=== PATIENT | female | born 1965 | race Caucasian/White ===

== ENCOUNTER 2019-12-27 15:56 | Outpatient (REF) | payer OTHER, SELFPAY ==
--- NOTE | 2019-12-27 | XR_ITS ---
EXAMINATION: XR SINUSES CLINICAL INFORMATION: Sinus headache COMPARISON: None TECHNIQUE: 3 views of the sinuses were obtained. FINDINGS: Paranasal sinuses appear clear without air-fluid levels. No fractures are identified. No radiodense foreign bodies. IMPRESSION: The paranasal sinuses appear clear.
[2019-12-27 16:20] LABS: MANUAL DIFF FLAG NO
[2019-12-27 16:26] LABS: Basophils Percent Auto 0.6 % (0-2); Eosinophils Absolute Auto 0.1 X10*3/uL (0.0-0.4); Eosinophils Percent Auto 1.1 % (0-4); Hematocrit 45.9 % (37-47); Hemoglobin 14.9 g/dl (12.0-16.0); Imm Gran Abs Auto 0.03 X10*3/uL (0.00-0.03); Imm Gran Pct Auto 0.5 % (0.0-0.4); Lymphocytes Absolute Auto 1.3 X10*3/uL (1.2-4.9); Lymphocytes Percent Auto 19.7 % (20-40); Mean Corpuscular HGB Conc 32.5 g/dl (31.0-35.0); Mean Corpuscular Hemoglobin 31.4 pg (27.0-33.0); Mean Corpuscular Volume 96.8 fL (80-98); Mean Platelet Volume 11.6 fL (9.4-12.3); Monocytes Absolute Auto 0.7 X10*3/uL (0.1-1.2); Monocytes Percent Auto 11.6 % (2-11); Neutrophils Absolute Auto 4.2 X10*3/uL (2.0-8.3); Neutrophils Percent Auto 66.5 % (45-73); Platelet Count 214 X10*3/uL (160-400); Red Blood Count 4.74 X10*6/uL (4.20-5.50); Red Cell Distribution Width 13.4 % (11.0-16.0); White Blood Count 6.4 X10*3/uL (4.8-10.8)
[2019-12-27 16:50] LABS: Alanine Aminotransferase 34 U/L (0-31); Albumin Level 4.5 g/dL (3.5-5.0); Alkaline Phosphatase 80 U/L (39-117); Anion Gap 11 (12-20); Aspartate Amino Transferase 24 U/L (5-31); Bilirubin Total 0.3 mg/dL (0.0-1.0); Blood Urea Nitrogen 16 mg/dL (9-16); C Reactive Protein 1.42 mg/dL (< or = 0.50); Calcium 9.6 mg/dL (8.4-10.2); Carbon Dioxide 30 mmol/L (22-29); Chloride 103 mmol/L (96-108); Estimated Glomerular Filt Rate 53; Glucose Random 84 mg/dL (60-115); Potassium 4.4 mmol/l (3.3-5.1); Sodium 140 mmol/L (135-145); Total Protein 7.6 g/dL (6.5-8.0)
[2019-12-27 17:23] LABS: Vitamin B12 > 2000 pg/mL (200-900)
[2019-12-27 17:40] LABS: Appearance Urine CLEAR; Color Urine YELLOW; Glucose Urine UA NEG (NEG); Leukocyte Esterase Urine NEG (NEG); Nitrite Urine NEG (NEG); Specific Gravity - Urine 1.025 (1.005-1.025); Urine Blood NEG (NEG); Urine Ketones NEG (NEG); Urine Protein NEG (NEG-TRACE)
== END 2019-12-27 15:57 | disposition home or self-care (01) ==
LOC: HO.LAB 15:56
PROVIDERS: PCP Internal Medicine; Visit Provider Internal Medicine
DX: R51.9 Headache, unspecified (principal); Q61.5 Medullary cystic kidney; E53.8 Deficiency of other specified B group vitamins
CPT/HCPCS: 36415; 70220; 80053; 81003; 82607; 85025; 86140

== ENCOUNTER 2020-02-21 15:33 | Outpatient (REF) | payer OTHER, SELFPAY ==
--- NOTE | 2020-02-21 | MM_ITS ---
EXAMINATION: MM SCREENING DIGITAL BREAST TOMOSYNTHESIS, BILATERAL CLINICAL INFORMATION: Screening. Asymptomatic. The lifetime risk of breast cancer based on the Tyrer-Cuzick Model is 9%. COMPARISON: Mammography: 02/15/2019, 01/18/2018, 12/19/2016 TECHNIQUE: Digital breast tomosynthesis is performed in both the craniocaudal and mediolateral oblique views along with computer-aided detection (CAD). Synthesized 2D images are generated from the tomosynthesis. FINDINGS: There are scattered areas of fibroglandular density (ACR BI-RADS breast composition Category b). There is no significant mass or architectural abnormality. Parenchymal pattern is similar to prior studies. No developing density. Again, there are regional calcifications central and upper outer right breast and lesser calcifications central left breast. No significant changes from prior exam. MM/MM tomosynthesis screening BI IMPRESSION: No significant changes from prior studies. ASSESSMENT: BI-RADS 2: Benign RECOMMENDATION: Routine annual mammography screening. This patient's information was entered into a reminder system with a target due date for their next mammogram.
== END 2020-02-21 15:34 | disposition home or self-care (01) ==
LOC: HO.MAMMO 15:33
PROVIDERS: PCP Internal Medicine; Visit Provider Internal Medicine
DX: Z12.31 Encounter for screening mammogram for malignant neoplasm of breast (principal)
CPT/HCPCS: 77063; 77067

== ENCOUNTER 2020-03-26 15:35 | Outpatient (REF) | payer BC, SELFPAY ==
[2020-03-29 12:12] LABS: HPV mRNA E6/E7 Not Detected (Not Detected)
== END 2020-03-26 15:36 | disposition home or self-care (01) ==
LOC: HO.LAB 15:35
PROVIDERS: PCP Internal Medicine; Visit Provider Obstetrics & Gynecology
DX: Z01.419 Encounter for gynecological examination (general) (routine) without abnormal findings (principal)
CPT/HCPCS: 36415; 87624; 87625; 88141; 88142

== ENCOUNTER 2021-02-24 15:23 | Outpatient (REF) | payer BC, SELFPAY ==
--- NOTE | ~2021-02-24 | MM_ITS ---
EXAMINATION: MM SCREENING DIGITAL BREAST TOMOSYNTHESIS, BILATERAL CLINICAL INFORMATION: Screening. Asymptomatic. The lifetime risk of breast cancer based on the Tyrer-Cuzick Model is 7%. COMPARISON: Mammography: 02/21/2020, 02/15/2019, 01/18/2018 TECHNIQUE: Digital breast tomosynthesis is performed in both the craniocaudal and mediolateral oblique views along with computer-aided detection (CAD). Synthesized 2D images are generated from the tomosynthesis. FINDINGS: There are scattered areas of fibroglandular density (ACR BI-RADS breast composition Category b). There are no significant masses, abnormal calcifications, or other abnormalities. Parenchymal pattern is similar to prior exams. There are scattered benign calcifications in each breast. No significant changes. MM/MM tomosynthesis screening BI IMPRESSION: No mammographic evidence of malignancy. ASSESSMENT: BI-RADS 2: Benign RECOMMENDATION: Routine annual mammography screening. This patient's information was entered into a reminder system with a target due date for their next mammogram.
== END 2021-02-24 15:24 | disposition home or self-care (01) ==
LOC: HO.MAMMO 15:23
PROVIDERS: Visit Provider Internal Medicine
DX: Z12.31 Encounter for screening mammogram for malignant neoplasm of breast (principal)
CPT/HCPCS: 77063; 77067

== ENCOUNTER → 2021-03-31 13:07 | Outpatient (BNVA) | payer BC, SELFPAY | PROVIDERS: Visit Provider Obstetrics & Gynecology ==

== ENCOUNTER 2021-04-30 12:48 | Outpatient (REF) | payer BC, SELFPAY ==
--- NOTE | ~2021-04-30 | CT_ITS ---
EXAMINATION: CT SINUS WITHOUT CONTRAST CLINICAL INFORMATION: Sinus pressure, rhinitis. COMPARISON: None TECHNIQUE: Axial 2 mm thin and reformatted 2 mm thin sagittal and coronal images of sinuses were obtained. This CT examination was performed using dose optimization techniques as appropriate, variously including the following: *Automated exposure control *Adjustment of mA and/or kV according to patient size (this includes techniques or standardized protocols for targeted exams where dose is matched to indication/reason for exam; i.e. extremities or head) *Use of iterative reconstruction technique DLP: 106 mGy-cm FINDINGS: FRONTAL SINUSES AND DRAINAGE PATHWAYS: Normal. MAXILLARY SINUSES AND DRAINAGE PATHWAYS: There is minimal mucoperiosteal thickening lateral wall left maxillary sinus. Rest of the paranasal sinuses are well aerated. The infundibula are patent. ETHMOID SINUSES: Normal. The ethmoid roofs are symmetric, with olfactory fossa depth of 0.4 on the right and 0.4 on the left. SPHENOID SINUSES AND DRAINAGE PATHWAYS: Normal. The sphenoid ostia are patent. The carotid canals are covered by bone. NASAL CAVITY/NASOPHARYNX: The nasal cavity is clear. There is mild right nasal septal deviation with tiny spurring. The nasopharynx is symmetric. ADDITIONAL RELEVANT FINDINGS: No periapical disease is seen. The TMJs articulate normally. The orbits and skull base soft tissues are unremarkable. The middle ear cavities and mastoid air cells are clear. Limited evaluation demonstrates no acute intracranial findings. CT/CT sinus wo con IMPRESSION: Mild deviation of nasal septum to the right with a small bony spur. Minimal mucoperiosteal thickening left maxillary sinus. Rest of the paranasal sinuses are well aerated.
== END 2021-04-30 12:49 | disposition home or self-care (01) ==
LOC: HO.CT 12:48
PROVIDERS: PCP Internal Medicine; Visit Provider Internal Medicine
DX: J31.0 Chronic rhinitis (principal); R51.9 Headache, unspecified
CPT/HCPCS: 70486

== ENCOUNTER 2021-05-06 06:10 | Outpatient (REF) | payer BC, SELFPAY ==
[2021-05-06 06:23] LABS: MANUAL DIFF FLAG NO
[2021-05-06 07:32] LABS: Basophils Percent Auto 0.5 % (0-2); Eosinophils Absolute Auto 0.2 X10*3/uL (0.0-0.4); Hematocrit 48.1 % (37.0-47.0); Imm Gran Abs Auto 0.01 X10*3/uL (0.00-0.03); Imm Gran Pct Auto 0.1 % (0.0-0.4); Lymphocytes Absolute Auto 2.8 X10*3/uL (1.2-4.9); Mean Corpuscular HGB Conc 31.2 g/dl (31.0-35.0); Mean Corpuscular Hemoglobin 30.8 pg (27.0-33.0); Mean Corpuscular Volume 98.8 fL (80.0-98.0); Mean Platelet Volume 11.6 fL (9.4-12.3); Monocytes Absolute Auto 0.6 X10*3/uL (0.1-1.2); Monocytes Percent Auto 7.1 % (2-11); Neutrophils Absolute Auto 4.1 x10*3/uL (2.0-8.3); Neutrophils Percent Auto 53.3 % (45-73); Platelet Count 253 X10*3/uL (160-400); Red Blood Count 4.87 X10*6/uL (4.20-5.50); Red Cell Distribution Width 13.1 % (11.0-16.0); White Blood Count 7.7 X10*3/uL (4.8-10.8)
[2021-05-06 07:35] LABS: Appearance Urine HAZY; Color Urine YELLOW; Glucose Urine UA NEG (NEG); Leukocyte Esterase Urine NEG (NEG); Nitrite Urine NEG (NEG); Specific Gravity - Urine 1.025 (1.005-1.025); Urine Blood NEG (NEG); Urine Ketones NEG (NEG); Urine Protein NEG (NEG-TRACE)
[2021-05-06 07:48] LABS: Alanine Aminotransferase 25 U/L (0-31); Albumin Level 4.3 g/dL (3.5-5.0); Alkaline Phosphatase 82 U/L (39-117); Anion Gap 14 (12-20); Aspartate Amino Transferase 19 U/L (5-31); Bilirubin Total 0.4 mg/dL (0.0-1.0); Blood Urea Nitrogen 16 mg/dL (9-16); Calcium 9.8 mg/dL (8.4-10.2); Carbon Dioxide 28 mmol/L (22-29); Chloride 103 mmol/L (96-108); Cholesterol 192 mg/dL; Estimated Glomerular Filt Rate 54; Glucose Fasting 154 mg/dL (60-99); HDL Cholesterol 49 mg/dL; LDL Cholesterol Calculated 117 mg/dl; Potassium 4.6 mmol/L (3.3-5.1); Sodium 140 mmol/L (135-145); Total Protein 7.6 g/dL (6.5-8.0); Triglycerides 134 mg/dL
[2021-05-06 08:13] LABS: Vitamin D 25-OH Total 37.1 ng/mL (>30)
== END 2021-05-06 06:11 | disposition home or self-care (01) ==
LOC: HO.LAB 06:10
PROVIDERS: PCP Internal Medicine; Visit Provider Internal Medicine
DX: Z00.00 Encounter for general adult medical examination without abnormal findings (principal); E55.9 Vitamin D deficiency, unspecified; Z13.220 Encounter for screening for lipoid disorders
CPT/HCPCS: 36415; 80053; 80061; 81003; 82306; 85025

== ENCOUNTER 2021-05-16 15:34 | Outpatient (REF) | payer BC, SELFPAY ==
[2021-05-16 16:45] LABS: Estimated Average Glucose 140 mg/dL; Hemoglobin A1c % 6.5 %
[2021-05-16 16:55] LABS: Anion Gap 12 (12-20); Blood Urea Nitrogen 17 mg/dL (9-16); Calcium 9.8 mg/dL (8.4-10.2); Carbon Dioxide 29 mmol/L (22-29); Chloride 104 mmol/L (96-108); Estimated Glomerular Filt Rate 51; Glucose Random 93 mg/dL (60-115); Potassium 4.6 mmol/L (3.3-5.1); Sodium 140 mmol/L (135-145)
[2021-05-16 18:07] LABS: Creatinine Urine 147.72 mg/dL
== END 2021-05-16 15:35 | disposition home or self-care (01) ==
LOC: HO.LAB 15:34
PROVIDERS: PCP Internal Medicine; Visit Provider Internal Medicine
DX: E11.9 Type 2 diabetes mellitus without complications (principal)
CPT/HCPCS: 36415; 80048; 82043; 83036

== ENCOUNTER 2021-07-28 12:58 | Outpatient (REF) | payer BC, SELFPAY ==
[2021-07-28 15:38] LABS: Appearance Urine CLEAR; Color Urine YELLOW; Glucose Urine UA NEG (NEG); Leukocyte Esterase Urine NEG (NEG); Nitrite Urine NEG (NEG); Specific Gravity - Urine 1.025 (1.005-1.025); Urine Blood NEG (NEG); Urine Ketones NEG (NEG); Urine Protein NEG (NEG-TRACE)
== END 2021-07-28 12:59 | disposition home or self-care (01) ==
LOC: HO.LAB 12:58
PROVIDERS: PCP Internal Medicine; Referring Provider Internal Medicine; Visit Provider Nurse Practitioner Family
DX: R30.0 Dysuria (principal)
CPT/HCPCS: 81003

== ENCOUNTER 2021-09-23 13:37 | Outpatient (REF) | payer BC, SELFPAY ==
[2021-09-23 13:43] LABS: MANUAL DIFF FLAG NO
[2021-09-23 14:37] LABS: Basophils Percent Auto 0.4 % (0-2); Eosinophils Absolute Auto 0.1 X10*3/uL (0.0-0.4); Eosinophils Percent Auto 1.2 % (0-4); Hematocrit 42.8 % (37.0-47.0); Imm Gran Abs Auto 0.03 X10*3/uL (0.00-0.03); Imm Gran Pct Auto 0.3 % (0.0-0.4); Lymphocytes Absolute Auto 2.5 X10*3/uL (1.2-4.9); Lymphocytes Percent Auto 26.3 % (20-40); Mean Corpuscular HGB Conc 32.7 g/dl (31.0-35.0); Mean Corpuscular Hemoglobin 31.3 pg (27.0-33.0); Mean Corpuscular Volume 95.7 fL (80.0-98.0); Mean Platelet Volume 11.9 fL (9.4-12.3); Monocytes Absolute Auto 0.5 X10*3/uL (0.1-1.2); Monocytes Percent Auto 4.9 % (2-11); Neutrophils Absolute Auto 6.3 x10*3/uL (2.0-8.3); Neutrophils Percent Auto 66.9 % (45-73); Platelet Count 252 X10*3/uL (160-400); Red Blood Count 4.47 X10*6/uL (4.20-5.50); White Blood Count 9.4 X10*3/uL (4.8-10.8)
[2021-09-23 14:58] LABS: Estimated Average Glucose 137 mg/dL; Hemoglobin A1c % 6.4 %
[2021-09-23 14:59] LABS: Alanine Aminotransferase 25 U/L (0-31); Albumin Level 4.3 g/dL (3.5-5.0); Alkaline Phosphatase 77 U/L (39-117); Anion Gap 11 (12-20); Aspartate Amino Transferase 20 U/L (5-31); Bilirubin Total 0.4 mg/dL (0.0-1.0); Blood Urea Nitrogen 14 mg/dL (9-16); C Reactive Protein 1.18 mg/dL (< or = 0.50); Calcium 9.3 mg/dL (8.4-10.2); Carbon Dioxide 28 mmol/L (22-29); Chloride 104 mmol/L (96-108); Estimated Glomerular Filt Rate 45; Glucose Random 184 mg/dL (60-115); Potassium 4.3 mmol/L (3.3-5.1); Sodium 139 mmol/L (135-145); Total Protein 7.3 g/dL (6.5-8.0)
== END 2021-09-23 13:38 | disposition home or self-care (01) ==
LOC: HO.LAB 13:37
PROVIDERS: PCP Internal Medicine; Visit Provider Internal Medicine
DX: R73.03 Prediabetes (principal); N18.9 Chronic kidney disease, unspecified; I83.90 Asymptomatic varicose veins of unspecified lower extremity
CPT/HCPCS: 36415; 80053; 83036; 85025; 86140

== ENCOUNTER 2021-11-06 09:25 | Day surgery (SDC) | payer BC, SELFPAY ==
[2021-10-31 12:38] VITALS: BMI 36.1
--- NOTE | 2021-11-05 12:27 | HO.ANESPROP2 ---
HPI - Anesthesia Eval Consult details Narrative: 56yo F for Colonoscopy PMFSH Active Problems Active Problems: All Active Problems (Updated 03/26/20 @ 16:13 by Yuniel Ramirez MD) Well woman exam (Acute) Past Medical History Medical History History of kidney stones Surgical History Surgical History (Updated 10/31/21 @ 12:36 by Taat Rodriguez RN) H/O tubal ligation Hx of colonoscopy Hx of knee surgery Social History Social History Alcohol intake: current Alcohol intake frequency: holidays/special occasions only Patient Tobacco Use Status: Current everyday Tobacco user Cigarettes Per Day: 4 Gender identity: Female Meds Allergies Allergy/AdvReac Type Severity Reaction Status Date / Time No Known Allergies Allergy Verified 07/28/21 13:09 Exam Exam Date and Time: November 05, 2021 1227 Height,Weight and Vital Signs: Height 5 ft 3 in Weight 92.533 kg Assessment and Plan Assessment Anesthesia Assessment: Chart Reviewed
[2021-11-06 09:28] VITALS: BP 149/95; PULSE 90; RESP 18; TEMP 36.1; O2SAT 96
--- NOTE | 2021-11-06 09:33 | MHC.SHP ---
Pre-Procedural Eval Section A Date of Service: 11/06/21 Section B Chief Complaint: screening Relevant Family History (Specify if Yes): No Relevant Social History: Tobacco Use Present Medications: see Short Stay Collaborative assessment Medical History: Significant History (nephrolithiasis ) History of Previous Operations: Relevant previous surgery/procedure and date(s) (H/O tubal ligation Hx of colonoscopy Hx of knee surgery) Allergies: Allergies Allergy/AdvReac Type Severity Reaction Status Date / Time No Known Allergies Allergy Verified 07/28/21 13:09 Review of Systems Sugical H&P ROS: Negative: Constitution, Cardiovascular, Respiratory, Neurological, Psychiatric, Hem-Onc, Allergic/Immunologic, Gastrointestinal, Genitourinary, Musculoskeletal, Integumentary, Endocrine and Eyes/Ears/Nose/Throat Exam Surgical H&P Exam: Normal: HEENT, Normal: Heart, Normal: Lungs, Normal: Extremities, Normal: Abdomen, Normal: Skin and Normal: Neurological Plan Diagnosis/Plan: Unchanged I have reviewed the history and physical and performed a pertinent physical examination on my patient. No changes have occurred unless specified.
[2021-11-06] MEDS: Lactated Ringers 1,000 ML 100 ML IVCONT (09:42)
--- NOTE | 2021-11-06 10:22 | W.PM.OPN ---
Operative Note Operative Note Date of Service: 11/06/21 Narrative: Operative Information Procedure Description: Colonoscopy Indication: screening Anesthesia: MAC COLONOSCOPY Instrument: Olympus variable stiffness pediatric scope 190L Colonoscopy Monitoring: Vital signs and clinical assessment, continuous EKG monitoring, Pulse oximetry, Carbon Dioxide monitoring and blood pressure monitoring were done throughout the procedure. Colon withdrawal time was 10 minutes. Procedure: The patient was placed in the left lateral decubitis position and pre-procedure medications were administered. After a digital rectal examination of the ano-rectum, the video colonoscope was inserted into the rectum and advanced through the colon to the cecum/TI. The colonoscope was slowly withdrawn in a retrograde panoramic fashion and the colon mucosa was carefully examined including a retroflexed view of the rectum. Findings and interventions are described below. Procedure Difficulty: easy Findings: Terminal Ileum-normal Cecum:normal Ascending Colon: few scattered diverticula Transverse Colon -normal Descending Colon:normal Sigmoid Colon: moderate severe diverticulosis with luminal narrowing Rectum: Retroflexion with moderate sized internal hemorrhoids, grade I Anorectum - normal Colon preparation: [place] Bowel Preparation Scale Right colon; 2 Transverse colon: 3 Left colon; 3 (0 = Unprepared colon segment with mucosa not seen due to solid stool that cannot be cleared. 1 = Portion of mucosa of the colon segment seen, but other areas of the colon segment not well seen due to staining, residual stool and/or opaque liquid. 2 = Minor amount of residual staining, small fragments of stool and/or opaque liquid, but mucosa of colon segment seen well. 3 = Entire mucosa of colon segment seen well with no residual staining, small fragments of stool or opaque liquid) Impression and Post Procedure Diagnosis: internal hemorrhoids diverticular disease Plan: High fiber diet leaflet Avoid straining at stool, epsom salts and sitz bath, anusol supps or cream Repeat Colonoscopy in 10 years or earlier if clinically indicated Above findings were reviewed with the patient and relevant handouts were provided if indicated.
--- NOTE | 2021-11-06 10:56 | P.CONAN_ITS ---
[facility] Active Problems Active Problems: All Active Problems (Updated 03/26/20 @ 16:13 by Yuniel Ramirez MD) Well woman exam (Acute) Past Medical History Medical History History of kidney stones Family History Family history of problems with anesthesia: No Surgical History Surgical History (Updated 10/31/21 @ 12:36 by Tata Rodriguez RN) H/O tubal ligation Hx of colonoscopy Hx of knee surgery History of Problems with Anesthesia: No Social History Social History Alcohol intake: current Alcohol intake frequency: holidays/special occasions only Patient Tobacco Use Status: Current everyday Tobacco user Cigarettes Per Day: 4 Are you DNR?: No Advance Directives: No Advance Directives Information Provided: Yes Gender identity: Female Meds Allergies Allergy/AdvReac Type Severity Reaction Status Date / Time No Known Allergies Allergy Verified 07/28/21 13:09 Active Medications: Current Medications Lactated Ringer's (Lr) 1,000 mls @ 100 mls/hr IVCONT .Q10H ANGIE Last Admin: 11/06/21 09:42 Dose: 100 mls/hr Ondansetron HCl (Ondansetron Hcl 4 Mg/2 Ml Vial) 4 mg IVPUSH ONCE PRN PRN Reason: Nausea and Vomiting Exam Exam Date and Time: November 06, 2021 1056 Height,Weight and Vital Signs: Height 5 ft 3 in Weight 92.533 kg Last Vital Signs Temp 97 F 11/06/21 09:28 Pulse 90 11/06/21 09:28 Resp 18 11/06/21 09:28 BP 149/95 H 11/06/21 09:28 Pulse Ox 96 11/06/21 09:28 O2 Del Method 11/06/21 09:28 Airway Mallampati Class: III TM Dist: >3cm Neck ROM: Full Denture: Upper and Lower Heart: rrr Lungs: clear Assessment and Plan Final Anesthetic Review Family History of Problems with Anesthesia: No History of Problems with Anesthesia: No NPO: Yes ASA Class: I Final Preanesthetic Review: No Changes in Pt Med Stat, Meds/Allgs Chart Reviewed, Consent Obtained/Reviewed and Anes Risks/Benef Reviewed Patient Risk: Low Procedure Risk: Low Anesthetic Plan Anesthetic Plan: MAC: Disposition: Standard PACU
[2021-11-06 11:34] VITALS: BP 110/74; PULSE 76; RESP 16; TEMP 36.4; O2SAT 95
[2021-11-06 11:48] VITALS: BP 132/82; PULSE 80; RESP 16; TEMP 36.2; O2SAT 97
== END 2021-11-06 12:25 | disposition home or self-care (01) ==
PROVIDERS: PCP Internal Medicine; Visit Provider Internal Medicine Gastroenterology
PROC: 0DJD8ZZ Inspection of Lower Intestinal Tract, Via Natural or Artificial Opening Endoscopic (ICD-10-PCS; CPT 45378; principal; 2021-11-06 11:00)
DX: Z12.11 Encounter for screening for malignant neoplasm of colon (principal); K57.30 Diverticulosis of large intestine without perforation or abscess without bleeding; K64.0 First degree hemorrhoids; Z87.442 Personal history of urinary calculi; Z98.51 Tubal ligation status; F17.210 Nicotine dependence, cigarettes, uncomplicated
CPT/HCPCS: 45378

== ENCOUNTER 2022-01-16 10:11 | Outpatient (REF) | payer BC, SELFPAY ==
--- NOTE | ~2022-01-16 | US_ITS ---
EXAMINATION: US VENOUS LOWER EXTREMITIES (REFLUX EXAM), BILATERAL CLINICAL INDICATION: Leg pain and varicose veins. COMPARISON: None TECHNIQUE: Color flow triplex imaging and compression Doppler was performed to evaluate both the deep and the superficial systems bilaterally. To evaluate the superficial system, the examination was performed in the upright position. Color-flow Doppler ultrasound and compression ultrasound were utilized. In addition, maneuvers were utilized to demonstrate reflux. FINDINGS: 1. DEEP VENOUS ULTRASOUND OF THE RIGHT LOWER EXTREMITY: Respiratory variation, normal compression and augmented flow are noted in the right common femoral vein as well as the right popliteal vein and there is no evidence of deep venous thrombosis at these locations. 0.6 seconds of reflux is present in the popliteal vein without reflux in the common femoral or femoral vein. There is no evidence of a Gayle's cyst. 2. SUPERFICIAL ULTRASOUND WITH DOPPLER OF RIGHT LOWER EXTREMITY: The right great saphenous vein at the saphenofemoral junction measures 8 mm, at the proximal thigh 7 mm, at the mid thigh 4 mm, above the knee 4 mm, at the knee 3 mm, [id number] 3 mm, midcalf 2 mm and at the ankle measures 3 mm. Reflux is present from the junction downward with reflux times as high as 2.9 seconds. Duplicated Right Great Saphenous Vein: There is a medial accessory saphenous measuring 4 mm without reflux. The right small saphenous vein measures 3 mm and shows no reflux. Accessory Vein of Giacomini: None. Incompetent Perforators: None. Perforators are present but these do not reflux. Varices Present: Multiple varices seen ranging in size from 3 to 7 mm all of which demonstrate significant reflux, some greater than 3 seconds. 3. DEEP VENOUS ULTRASOUND OF THE LEFT LOWER EXTREMITY: Respiratory variation, normal compression and augmented flow are noted in the left common femoral vein as well as the left popliteal vein and there is no evidence of deep venous thrombosis at these locations. Reflux is present throughout the entire deep venous system with reflux times as high as 2.7 seconds in the common femoral vein. There is no evidence of a Gayle's cyst. 4. SUPERFICIAL ULTRASOUND WITH DOPPLER OF LEFT LOWER EXTREMITY: Left great saphenous vein at the saphenofemoral junction measures 14 mm, at the proximal thigh 12 mm, at the mid thigh 10 mm, above the knee 8 mm, at the knee 6 mm, [id number] 7 mm, midcalf 2 mm and at the ankle measures 2 mm. Gross reflux present throughout the left great saphenous vein with reflux times as high as 3.3 seconds. Duplicated Left Great Saphenous Vein: None. The left small saphenous vein measures 5 mm and shows no reflux. Accessory Vein of Giacomini: None. Incompetent Perforators: A small saphenous mid molder feeder measuring 4 mm is present but does not reflux. There is another molder feeder seen 60 cm from the calcaneus which measures 2 mm and demonstrates 3.3 seconds of reflux. Varices Present: Multiple varices are present ranging in size from 3 mm to 9 mm all of which reflux with reflux times as high as 3.4 seconds. US/US venous duplex LE BI IMPRESSION: 1. Reflux throughout the deep venous system on the left and in the popliteal vein on the right. 2. 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 3. Regarding incompetent perforators and varices, please see above.
== END 2022-01-16 10:12 | disposition home or self-care (01) ==
LOC: HO.US 10:11
PROVIDERS: Visit Provider Surgery Vascular Surgery
DX: I83.11 Varicose veins of right lower extremity with inflammation (principal)
CPT/HCPCS: 93970

== ENCOUNTER → 2022-02-20 07:22 | Outpatient (BNVA) | payer BC, SELFPAY | PROVIDERS: PCP Internal Medicine; Visit Provider Surgery Vascular Surgery | DX: I83.12 Varicose veins of left lower extremity with inflammation (principal) | CPT/HCPCS: 36475 ==

== ENCOUNTER 2022-02-23 15:19 | Outpatient (REF) | payer BC, SELFPAY ==
--- NOTE | ~2022-02-23 | US_ITS ---
EXAMINATION: TRIPLEX SCANNING OF LEFT LOWER EXTREMITY; SUPERFICIAL ULTRASOUND WITH DOPPLER OF LEFTLOWER EXTREMITY CLINICAL INFORMATION: Status post RF ablation of the left great saphenous vein. Originally performed on 02/20/2022. COMPARISON: 01/16/2022. TECHNIQUE: Color flow triplex imaging and compression Doppler were performed as well as superficial ultrasound with Doppler. FINDINGS: TRIPLEX SCANNING OF LEFT LOWER EXTREMITY: Respiratory variation, normal compression and augmented flow are noted throughout the lower extremity. The visualized common femoral vein, femoral vein, profunda femoral vein, popliteal vein and the calf veins show no evidence of deep venous thrombosis. There is no evidence of Gayle's cyst. SUPERFICIAL ULTRASOUND WITH DOPPLER OF LEFT LOWER EXTREMITY: The left great saphenous vein is occluded from the access site to 0.7 cm before the sapheno-femoral junction. There is no extension of thrombus into the deep system. US/US venous duplex LE LT IMPRESSION: 1. Normal triplex scan of the left without evidence of deep venous thrombosis. 2. Excellent appearance status post ablation of the left great saphenous vein.
== END 2022-02-23 15:20 | disposition home or self-care (01) ==
LOC: HO.US 15:19
PROVIDERS: Visit Provider Surgery Vascular Surgery
DX: M79.605 Pain in left leg (principal)
CPT/HCPCS: 93971

== ENCOUNTER 2022-02-26 15:14 | Outpatient (REF) | payer BC, SELFPAY | END 2022-02-26 15:15 | disposition home or self-care (01) | LOC: HO.MAMMO 15:14 | PROVIDERS: PCP Internal Medicine; Visit Provider Internal Medicine | DX: Z12.31 Encounter for screening mammogram for malignant neoplasm of breast (principal) | CPT/HCPCS: 77063; 77067 ==

== ENCOUNTER → 2022-03-05 14:30 | Outpatient (BNVA) | payer BC, SELFPAY | PROVIDERS: PCP Internal Medicine; Visit Provider Surgery Vascular Surgery | DX: Z13.89 Encounter for screening for other disorder (principal) ==

== ENCOUNTER → 2022-04-06 12:41 | Outpatient (BNVA) | payer BC, SELFPAY | PROVIDERS: PCP Internal Medicine; Visit Provider Obstetrics & Gynecology | DX: Z13.89 Encounter for screening for other disorder (principal) ==

== ENCOUNTER 2022-12-11 06:09 | Outpatient (REF) | payer BC, SELFPAY | END 2022-12-11 06:10 | disposition home or self-care (01) | LOC: HO.LAB 06:09 | PROVIDERS: PCP Internal Medicine; Visit Provider Internal Medicine | DX: E11.22 Type 2 diabetes mellitus with diabetic chronic kidney disease (principal); N18.9 Chronic kidney disease, unspecified; K57.90 Diverticulosis of intestine, part unspecified, without perforation or abscess without bleeding; Q61.5 Medullary cystic kidney | CPT/HCPCS: 36415; 80053; 80061; 81001; 82043; 82570; 83036; 85025 ==

== ENCOUNTER 2023-03-02 15:44 | Emergency (ER) | payer BC, SELFPAY ==
--- NOTE | ~2023-03-02 | US_ITS ---
EXAMINATION: US PELVIS CLINICAL INFORMATION: Left lower quadrant pain. Passing blood clots COMPARISON: None available. TECHNIQUE: Ultrasound of the pelvis is performed using both transabdominal and transvaginal transducers. Transvaginal. imaging is performed due to inadequate visualization transabdominally. FINDINGS: The uterus is anteverted and retroflexed and measures 7.5 x 3.6 x 4.1 cm in dimension. No focal uterine lesion is seen. The endometrium is normal measuring 0.4-0.5 cm. The ovaries are normal. The right ovary measures 2 x 1.3 x 2 .4 cm. The left ovary measures 2.3 x 2.3 x 1.9 cm. There is no fluid in the pelvis. US/US pelvic and transvaginal IMPRESSION: Unremarkable exam.
[2023-03-02 15:57] VITALS: BP 155/81; PULSE 77; RESP 18; TEMP 36.1; O2SAT 98; BMI 35.3
--- NOTE | 2023-03-02 18:41 | ED_ITS ---
HPI - Abdominal Pain General Chief Complaint: Abdominal Pain Stated Complaint: abdominal pain, nausea Time Seen by Provider: 03/02/23 23:36 Source: patient Mode of arrival: ambulatory Limitations: no limitations History of Present Illness HPI narrative: 57 year old female with pmhx significant for varicose veins, renal stones, and tubal ligation presents to the ED today for evaluation of abdominal pain x4 weeks. Admits to intermittent abdominal pain localized to her left lower quadrant. No radiation of pain. Admits to passing small clots when urinating however cannot decipher whether these clots are coming from her vaginal canal or her urine. Denies anticoagulation. Denies history of hysterectomy, oophorectromy, or salpingectomy. Denies fever, chills, nausea, vomiting, flank pain, dysuria, hesitancy, frequency, incontinence, vaginal discharge, dyspareunia. Reports history of tobacco use x13 yrs. Related Data Home Medications Medication Instructions Recorded Confirmed No Known Home Meds 01/22/22 01/22/22 Allergies Allergy/AdvReac Type Severity Reaction Status Date / Time No Known Allergies Allergy Verified 03/02/23 16:01 Review of Systems Review of Systems Yes all other systems are reviewed and are negative [facility] Past Medical History Attestation statement: The following information was validated with the patient. Source: old records reviewed and nursing notes reviewed Medical History History of kidney stones Surgical History Hx of colonoscopy H/O tubal ligation Hx of knee surgery Family History Family History Mother Diabetes HTN (hypertension) Brother Kidney disease Social History Social History Household Members: Spouse Housing: Apartment Alcohol intake: current Alcohol intake frequency: holidays/special occasions only Patient Tobacco Use Status: Current everyday Tobacco user Cigarettes Per Day: 5 Years Smoked: 13 Advance Directives: No Advance Directives Information Provided: No Current occupational status: employed 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 Const General: cooperative, healthy appearing, comfortable, no acute distress, alert and awake Orientation/consciousness: patient oriented x3 Limitations: no limitations Eyes General: appearance normal, both eyes and all related structures Pupils: Equal, round and reactive pupils present Neck Neck: Yes normal visual inspection Resp Effort & Inspection: normal respiratory effort Auscultation: clear to auscultation bilaterally Cardio Rate: regular rate Rhythm: regular rhythm GI Inspection: Yes normal to inspection Palpation (GI): Soft to palpation, nontender and no guarding Auscultation: normal bowel sounds General: Yes no CVA tenderness Back/Spine/Pelvis Back: no CVA tenderness Skin General skin exam: no rashes or lesions noted Neuro General: patient oriented x3, gait normal and moves all extremities Cranial nerves: Yes Equal, round and reactive pupils present Extrem General: Yes normal to inspection Course Course Course Narrative: On interpretation of labs, CBC shows slight leukocytosis to 11.7 without left shift. No anemia. H&H stable. Chemistry does not reveal any acute electrolyte abnormality requiring intervention. Urinalysis does not show blood or infection. Pelvis/ transvaginal ultrasound essentially unremarkable. There is no endometrial thickening. No ovarian torsion or ovarian cysts. There is no free fluid within the pelvis.?Patient's work up is essentially unremarkable. >> CT scan of abdomen/pelvis ordered for further investigation into etiology of patient's pain/ bleeding, however the patient left the emergency department before myself or any of the other clinicians could review or explain physical exam findings, test results, need or lack there of for additional testing, treatment options, or a treatment plan. Medical Decision Making Medical Decision Making MDM Narrative: 57 year old female with pmhx significant for varicose veins, renal stones, and tubal ligation presents to the ED today for evaluation of abdominal pain x4 weeks. Patient is hypertensive to 155/81. Vitals are otherwise within normal limits. Patient is nontoxic appearing and in NAD. Abdomen is soft, ND/NT, no rebound or guarding. Normoactive bs x4. No CVAT b/l. Pelvic exam unable to be performed as patient left the emergency department prior to completing evaluation/ treatment. Concern for abnormal uterine bleeding, endometrial carcinoma, ovarian cyst, urinary tract infection, neprholithiasis, renal colic. Unlikely ovarian torsion, PID, pyelonephriris, diverticulosis or diverticulitis, colitis, ischemic bowel, sbo, acute abdomen. Labs, UA, and ultrasound orderd. Differential Diagnosis Differential Diagnoses: The differential diagnosis associated with the presentation includes as above. Admission/Observation Consideration of admission/observation: Escalation of care including admission/observation considered In this patient with unknown etiology of vaginal bleeding, admission was considered. Lab Data MDM Lab Attestation statement: I reviewed the patient's lab results. as above 03/02/23 18:50 03/02/23 18:50 Labs: Lab Results 03/02/23 Range/Units 18:50 WBC 11.7 H (4.8-10.8) X10*3/uL RBC 4.84 (4.20-5.50) X10*6/uL Hgb 15.2 (12.0-16.0) g/dl Hct 46.4 (37.0-47.0) % MCV 95.9 (80.0-98.0) fL MCH 31.4 (27.0-33.0) pg MCHC 32.8 (31.0-35.0) g/dl RDW 12.8 (11.0-16.0) % Plt Count 256 (160-400) X10*3/uL MPV 11.0 (9.4-12.3) fL Immature Gran % (Auto) 0.3 (0.0-0.4) % Neut % (Auto) 58.1 (45-73) % Lymph % (Auto) 33.7 (20-40) % [place] % (Auto) 5.5 (2-11) % Eos % (Auto) 2.0 (0-4) % Baso % (Auto) 0.4 (0-2) % Lymph # (Auto) 4.0 (1.2-4.9) X10*3/uL [place] # (Auto) 0.6 (0.1-1.2) X10*3/uL Eos # (Auto) 0.2 (0.0-0.4) X10*3/uL Baso # (Auto) 0.1 (0.0-0.2) X10*3/uL Abs Immat Gran (auto) 0.03 (0.00-0.03) X10*3/uL Absolute Neuts (auto) 6.8 (2.0-8.3) x10*3/uL Absolute Nucleated RBC 0.000 (0.0-0.012) X10*3/uL Nucleated RBC % (auto) 0.0 (0.0-0.2) /100WBC Sodium 142 (135-145) mmol/L Potassium 4.3 (3.3-5.1) mmol/L Chloride 105 (96-108) mmol/L Carbon Dioxide 29 (22-29) mmol/L Anion Gap 12 (12-20) BUN 14 (9-16) mg/dL Creatinine 0.88 (0.5-1.4) mg/dL Estim Creat Clear Calc 73.4 Estimated GFR > 60 Random Glucose 111 (60-115) mg/dL Calcium 10.0 (8.4-10.2) mg/dL Urine Color Yellow Urine Appearance Clear Urine pH 6.5 (5.0-9.0) Ur Specific [place] 1.010 (1.005-1.025) Urine Protein Negative (Neg-Trace) mg/dL Urine Glucose (UA) Negative (Negative) mg/dL Urine Ketones Negative (Negative) mg/dL Urine Blood Negative (Negative) Urine Nitrite Negative (Negative) Ur Leukocyte Esterase Trace H (Negative) Urine RBC 0-2 (0-2) /HPF Urine WBC 0-5 (0-5) /HPF Ur Squamous Epith Cells 0-2 (0-2) /HPF Urine Bacteria None Seen (None Seen) Hyaline Casts 0-2 (0-2) /LPF Independent Interpretation I performed an independent interpretation of an: Ultrasound Interpretation: I have personally interpreted pelvic/ transvaginal ultrasound and agree with radiologist's interpretation. Radiology Impression Discussion of test interpretation with radiology: I have reviewed the radiologist's reading. Radiologist Impression: US pelvic and transvaginal IMPRESSION: Unremarkable exam. External Record Review External record reviewed: Inpatient record Critical Care Time Critical Care Time Critical Care Time: No Discharge Plan Discharge Clinical Impression: Left lower quadrant abdominal pain of unknown etiology Patient Disposition: Elopement Prescriptions: No Action No Known Home Meds Interventions: ED Discharge Assessment Last Done: 03/03/23 00:47 Discharge Date/Time: 03/03/23 00:48
[2023-03-02 19:00] LABS: MANUAL DIFF FLAG NO
[2023-03-02 19:03] LABS: Basophils Absolute Auto 0.1 X10*3/uL (0.0-0.2); Basophils Percent Auto 0.4 % (0-2); Eosinophils Absolute Auto 0.2 X10*3/uL (0.0-0.4); Hematocrit 46.4 % (37.0-47.0); Hemoglobin 15.2 g/dl (12.0-16.0); Imm Gran Abs Auto 0.03 X10*3/uL (0.00-0.03); Imm Gran Pct Auto 0.3 % (0.0-0.4); Lymphocytes Percent Auto 33.7 % (20-40); Mean Corpuscular HGB Conc 32.8 g/dl (31.0-35.0); Mean Corpuscular Hemoglobin 31.4 pg (27.0-33.0); Mean Corpuscular Volume 95.9 fL (80.0-98.0); Monocytes Absolute Auto 0.6 X10*3/uL (0.1-1.2); Monocytes Percent Auto 5.5 % (2-11); Neutrophils Absolute Auto 6.8 x10*3/uL (2.0-8.3); Neutrophils Percent Auto 58.1 % (45-73); Platelet Count 256 X10*3/uL (160-400); Red Blood Count 4.84 X10*6/uL (4.20-5.50); Red Cell Distribution Width 12.8 % (11.0-16.0); White Blood Count 11.7 X10*3/uL (4.8-10.8)
[2023-03-02 19:24] LABS: Anion Gap 12 (12-20); Blood Urea Nitrogen 14 mg/dL (9-16); Carbon Dioxide 29 mmol/L (22-29); Chloride 105 mmol/L (96-108); Creatinine Clr Calc Pharmacy 73.4; Estimated Glomerular Filt Rate > 60; Glucose Random 111 mg/dL (60-115); Potassium 4.3 mmol/L (3.3-5.1); Sodium 142 mmol/L (135-145)
[2023-03-02 19:30] LABS: Appearance Urine Clear; Color Urine Yellow; Glucose Urine UA Negative (Negative); Leukocyte Esterase Urine Trace (Negative); Nitrite Urine Negative (Negative); PH 6.5 (5.0-9.0); UMIC TRIGGER UACC YES; Urine Blood Negative (Negative); Urine Ketones Negative (Negative); Urine Protein Negative (Neg-Trace)
[2023-03-02 19:38] LABS: Bacteria Urine None Seen (None Seen); Hyaline Casts Urine 0-2 /LPF (0-2); RBC Urine 0-2 /HPF (0-2); Squamous Epithelial Cell Urine 0-2 /HPF (0-2); WBC Urine 0-5 /HPF (0-5)
--- NOTE | 2023-03-03 00:31 | PC.NURSE ---
pt upset about wait times; states Sophie been here since 3pm and Im done waiting. explained that she is in a room and will be seen shortly, pt then continued out of her room and walked towards the exit. again stating she is done with waiting.
--- NOTE | 2023-03-03 00:33 | PC.NURSE ---
notified that pt left.
--- NOTE | 2023-03-03 00:34 | PC.NURSE ---
radiology came to get pt for ct and pt was not found in room and gown was on the bed.
== END 2023-03-03 00:48 | disposition left against medical advice (07) ==
PROVIDERS: Physician Assistant Medical; Emergency Provider Emergency Medicine; PCP Internal Medicine
DX: R10.32 Left lower quadrant pain (principal); R10.2 Pelvic and perineal pain; F17.210 Nicotine dependence, cigarettes, uncomplicated; Z71.6 Tobacco abuse counseling
CPT/HCPCS: 36415; 76830; 76856; 80048; 81001; 81003; 85025; 99282; 99284

== ENCOUNTER 2023-03-05 14:53 | Outpatient (REF) | payer BC, SELFPAY ==
--- NOTE | ~2023-03-05 | MM_ITS ---
EXAMINATION: MM SCREENING DIGITAL BREAST TOMOSYNTHESIS, BILATERAL CLINICAL INFORMATION: Screening. Asymptomatic. COMPARISON: Mammography: 02/26/2022, 02/24/2021, 02/21/2020, 02/15/2019, and dating back to 2014. TECHNIQUE: Digital breast tomosynthesis is performed in both the craniocaudal and mediolateral oblique views along with computer-aided detection (CAD). Synthesized 2D images are generated from the tomosynthesis. FINDINGS: There are scattered areas of fibroglandular density (ACR BI-RADS breast composition Category b). Similar asymmetric tissue density in the upper outer left breast, benign. There are a few scattered dystrophic calcifications in both breasts without aggressive grouping or aggressive changes. Stable punctate tiny calcifications in the retroareolar right breast, also unchanged from prior exams and benign. There are no suspicious masses, suspicious grouped calcifications, or areas of architectural distortion in either breast. The parenchymal pattern is stable from prior exams. MM/MM tomosynthesis screening BI IMPRESSION: No mammographic evidence of malignancy. There are stable benign findings. ASSESSMENT: BI-RADS BI-RADS 2 - Benign Findings RECOMMENDATION: Routine annual mammography screening. 1 year F/U This examination should not preclude the clinical evaluation of a suspicious palpable abnormality. This patient's information was entered into a reminder system with a target due date for their next mammogram.
== END 2023-03-05 14:54 | disposition home or self-care (01) ==
LOC: HO.MAMMO 14:53
PROVIDERS: PCP Internal Medicine; Visit Provider Internal Medicine
DX: Z12.31 Encounter for screening mammogram for malignant neoplasm of breast (principal)
CPT/HCPCS: 77063; 77067

== ENCOUNTER → 2023-03-05 15:00 | Outpatient (BNV) | payer BC, SELFPAY | PROVIDERS: PCP Internal Medicine; Visit Provider Radiology Diagnostic Radiology | DX: Z12.31 Encounter for screening mammogram for malignant neoplasm of breast (principal) | CPT/HCPCS: 77063; 77067 ==

== ENCOUNTER 2023-04-08 15:35 | Outpatient (AMB) | payer BC, SELFPAY ==
[2023-04-08 15:40] VITALS: BP 110/70; BMI 35.1
--- NOTE | 2023-04-08 15:40 | A.OFFVIS_ITS ---
Intake Vital Signs 04/08/23 15:40 Height 5 ft 3 in Weight 198 lb 6.656 oz BMI 35.1 BP 110/70 Intake Visit Reasons: Annual Intake Note: no concerns Home Care Administrator Required: No Information Interpreted: non-clinical & clinical Jewel Bearing Maker: Jewel Bearing Maker Present (Madeline Hernandez IRMA) Accompanied by: Self / Same As Patient Allergies No Known Allergies Allergy (Verified 04/08/23 15:43) Post menopausal: Yes HPI HPI Comments History of Present Illness Details Presenting for annual exam. No complaints. Last Pap/HPV was negative in 03/28 Last Mammogram was BI-RADS 2 in 02/27 Last Colonoscopy was in 11/27, the recommendation was to repeat in 10 years [facility] Medical History History of kidney stones Surgical History Hx of colonoscopy H/O tubal ligation Hx of knee surgery Family History Mother Diabetes HTN (hypertension) Brother Kidney disease Social History Household Members: Spouse Housing: Apartment Alcohol intake: current Alcohol intake frequency: holidays/special occasions only Patient Tobacco Use Status: Current everyday Tobacco user Cigarettes Per Day: 5 Years Smoked: 13 Current occupational status: employed 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 Sexual orientation: Straight/Heterosexual Gender identity: Female Female Reproductive History Menstrual Age of Menarche: 9 Menopause type: natural Total pregnancies: 5 Full term: 4 Number of Living Children: 4 Ab spontaneous: 1 Date of last pap smear: 03/27/20 Date of Mammogram: 03/05/23 Review of Systems Const All systems reviewed & are unremarkable except as noted in HPI and below Card Reports as per HPI Resp Reports as per HPI GI Reports as per HPI and Reports no additional complaints Reports as per HPI Physical Exam Vital Signs: Last Vital Signs BP 110/70 04/08/23 15:40 BMI result Body Mass Index 35.1 Const General: cooperative, healthy appearing and comfortable Chest Chest palpation & inspection: normal inspection of the chest and normal palpation of entire chest wall Breast/axilla inspection: normal inspection of the breasts and normal inspection of the axillae Breast/axilla palpation: normal palpation of the breasts, normal palpation of the axillae and no axillary lymphadenopathy Resp Effort & Inspection: normal respiratory effort Auscultation: clear to auscultation bilaterally Percussion: percussion normal Cardio Palpation: normal PMI Rate: regular rate Rhythm: regular rhythm Heart sounds: no murmurs and no rubs Peripheral pulses: Peripheral pulses 2+ throughout GI Inspection: Yes normal to inspection Palpation (GI): Soft to palpation, nontender, no guarding, not rigid and No hepatosplenomegaly present Percussion: Yes normal to percussion Auscultation: normal bowel sounds Rectal Exam - Female: deferred General: Yes bladder normal to palpation External Female Exam: No lesion Speculum Exam - Vagina: normal appearance of the vagina, normal palpation, normal vaginal discharge and not erythematous Speculum Exam - Cervix: normal appearance of the cervix and normal palpation Bimanual exam- vagina & uterus: normal bimanual exam, normal palpation, uterine size normal, bladder normal to palpation, consistency normal and normal palpation Bimanual Exam- Adnexa, other: normal adnexae, no masses and no tenderness Assessment & Plan Assessment & Plan (1) Well woman exam: Code(s): Z01.419 - Encounter for gynecological examination (general) (routine) without abnormal findings Plan: Co testing not indicated this year. Counseled the patient about the recommended dietary allowance of 1200 mg of Calcium & 600 IU of vitamin D. Instructions given the patient to schedule next screen Mammogram in 02/28. The patient was instructed to perform monthly self-breast exams and schedule annual exam in a year. All questions answered and the patient verbalized understanding. Coding Level of Care Code Est Pt Prev Care 40-64y(84099) Diagnoses Well woman exam Z01.419
== END 2023-04-08 15:54 | disposition home or self-care (01) ==
LOC: HO.HWS 15:35
PROVIDERS: PCP Internal Medicine; Visit Provider Obstetrics & Gynecology
DX: Z01.419 Encounter for gynecological examination (general) (routine) without abnormal findings (principal)
CPT/HCPCS: 99396

== ENCOUNTER → 2023-04-08 15:35 | Outpatient (BNVA) | payer BC, SELFPAY | PROVIDERS: PCP Internal Medicine; Visit Provider Obstetrics & Gynecology ==

== ENCOUNTER 2023-09-08 14:11 | Outpatient (REF) | payer BC, SELFPAY ==
--- NOTE | ~2023-09-08 | US_ITS ---
EXAMINATION: US ABDOMEN COMPLETE CLINICAL INFORMATION: Abdominal pain. COMPARISON: CT abdomen/pelvis 04/08/2010 TECHNIQUE: Real-time imaging of the abdominal viscera. FINDINGS: PANCREAS: Limited visualization. ABDOMINAL AORTA: The proximal, mid, and distal segments are normal in caliber. INFERIOR VENA CAVA: Visualized portions are normal. LIVER: The liver is normal in size. The liver contour is normal. There is diffuse increased liver parenchymal echogenicity, consistent with hepatic steatosis. No definite focal lesion is seen, but evaluation is limited due to poor sound beam penetration through the coarse echogenic liver parenchyma. There is no intrahepatic biliary duct dilatation seen. GALLBLADDER: The gallbladder is physiologically distended without evidence of stones, sludge, polyps, wall thickening or pericholecystic fluid. COMMON BILE DUCT: Normal in caliber measuring 0.5 cm in diameter. RIGHT KIDNEY: Echogenic medullary pyramids. No hydronephrosis. No renal calculi or focal parenchymal lesions. The kidney measures 12.4 cm in maximum dimension. LEFT KIDNEY: Echogenic medullary pyramids. No hydronephrosis. Midpole nonobstructing calculi measuring 4 mm and 3 mm. No focal parenchymal lesions. The kidney measures 12.4 cm in maximum dimension. SPLEEN: The spleen measures 9.9 cm in maximum dimension. FREE FLUID: None. US/US abdomen complete IMPRESSION: Hepatic steatosis. 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 Nonobstructing left renal calculi. No hydronephrosis.
--- NOTE | ~2023-09-08 | XR_ITS ---
EXAMINATION: XR ABDOMEN KUB CLINICAL INDICATION: Nausea COMPARISON: None available. TECHNIQUE: AP view of the abdomen. FINDINGS: Moderate stool burden but no proximal obstruction, free air, or mass effect. XR/XR abdomen 1V IMPRESSION: Unremarkable exam.
[2023-09-08 14:36] LABS: MANUAL DIFF FLAG NO
[2023-09-08 14:43] LABS: Basophils Absolute Auto 0.1 X10*3/uL (0.0-0.2); Basophils Percent Auto 0.5 % (0-2); Eosinophils Absolute Auto 0.2 X10*3/uL (0.0-0.4); Eosinophils Percent Auto 2.1 % (0-4); Hematocrit 44.7 % (37.0-47.0); Hemoglobin 14.7 g/dl (12.0-16.0); Imm Gran Abs Auto 0.03 X10*3/uL (0.00-0.03); Imm Gran Pct Auto 0.3 % (0.0-0.4); Lymphocytes Absolute Auto 2.9 X10*3/uL (1.2-4.9); Lymphocytes Percent Auto 30.2 % (20-40); Mean Corpuscular HGB Conc 32.9 g/dl (31.0-35.0); Mean Corpuscular Hemoglobin 31.9 pg (27.0-33.0); Monocytes Absolute Auto 0.6 X10*3/uL (0.1-1.2); Monocytes Percent Auto 5.7 % (2-11); Neutrophils Percent Auto 61.2 % (45-73); Platelet Count 247 X10*3/uL (160-400); Red Blood Count 4.61 X10*6/uL (4.20-5.50); White Blood Count 9.7 X10*3/uL (4.8-10.8)
[2023-09-08 15:00] LABS: Appearance Urine Clear; Color Urine Yellow; Glucose Urine UA Negative (Negative); Leukocyte Esterase Urine Negative (Negative); Nitrite Urine Negative (Negative); Urine Blood Negative (Negative); Urine Ketones Negative (Negative); Urine Protein Negative (Neg-Trace)
[2023-09-08 15:14] LABS: Alanine Aminotransferase 21 U/L (0-31); Albumin Level 4.3 g/dL (3.5-5.0); Alkaline Phosphatase 80 U/L (39-117); Anion Gap 11 (12-20); Aspartate Amino Transferase 17 U/L (5-31); Bilirubin Total 0.3 mg/dL (0.0-1.0); Blood Urea Nitrogen 14 mg/dL (9-16); C Reactive Protein 1.15 mg/dL (< or = 0.50); Calcium 10.2 mg/dL (8.4-10.2); Carbon Dioxide 29 mmol/L (22-29); Chloride 105 mmol/L (96-108); Estimated Glomerular Filt Rate 57; Glucose Random 130 mg/dL (60-115); Potassium 4.5 mmol/L (3.3-5.1); Sodium 140 mmol/L (135-145); Total Protein 7.7 g/dL (6.5-8.0)
== END 2023-09-08 14:12 | disposition home or self-care (01) ==
LOC: HO.US 14:11
PROVIDERS: PCP Internal Medicine; Visit Provider Internal Medicine
DX: R10.9 Unspecified abdominal pain (principal)
CPT/HCPCS: 36415; 74018; 76700; 80053; 81003; 85025; 86140

== ENCOUNTER 2023-11-11 09:06 | Outpatient (AMB) | payer BC, SELFPAY ==
--- NOTE | 2023-11-11 09:08 | A.OFFVIS_ITS ---
Intake Visit Reasons: follow up VV Gloria URIBE, last seen 2021 Intake Note: Patient presents for follow up VV R RONY. Patient states she is here to follow up on her right leg , was supposed to have a procedure but was unable to due to illness. She states she has a burning sensation in one of her veins. Accompanied by: Self / Same As Patient Allergies No Known Allergies Allergy (Verified 04/08/23 15:43) [facility] HPI follow up VV Gloria URIBE, last seen 2021: Details: Very pleasant 58-year-old female presents for follow-up regarding venous disease. She had a originally undergone left leg ablation with us and subsequently developed COVID. She did not follow-up for her right leg. Reports that the right leg has gotten significantly worse. She has large varicosities which have been a source of pain and discomfort for her. In addition the swelling and pain have been an issue for her. She now presents to us for follow-up. 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 Sexual orientation: Straight/Heterosexual Gender identity: Female Female Reproductive History Menstrual Age of Menarche: 9 Review of Systems Const Reports as per HPI ENT Reports no additional complaints Card Denies chest pain, Denies chest pain at rest and Denies chest pain with activity Resp Denies chest congestion and Denies cough GI Reports no additional complaints Musc Details: pain over varicosities, aching of lower extremities, swelling, cramping, heaviness and tiredness, itching Denies abnormal gait Skin/Breast Reports pruritus and Denies wounds Neuro Reports no additional complaints and Denies abnormal gait Psych Denies no additional complaints Physical Exam Const General: cooperative, healthy appearing and comfortable Orientation/consciousness: oriented to person, oriented to place and oriented to time Neck Carotids: no bruits Chest Chest palpation & inspection: normal inspection of the chest and normal palpation of entire chest wall Resp Effort & Inspection: normal respiratory effort and able to speak in complete sentences Cardio Rate: regular rate Heart sounds: S1 normal heart sound present and S2 normal heart sound present Peripheral pulses: Peripheral pulses 2+ throughout GI Inspection: Yes normal to inspection Skin Other: +2 edema, large rope-like varicosities greater than 4 mm right calf and thigh CEAP Classification C4 - skin color changes Ep - Etiology Primary As - superficial veins P - reflux General skin exam: dry skin Neuro General: oriented to person, oriented to place and oriented to time Extrem Right lower extremity: full ROM, normal capillary refill and edema Left lower extremity: full ROM, normal capillary refill and edema Psych Mental Status: mental status grossly normal Assessment & Plan Assessment & Plan (1) Varicose veins of right lower extremity with inflammation: Code(s): I83.11 - Varicose veins of right lower extremity with inflammation Category: Medical Plan: In short patient does have venous insufficiency of the right lower extremity. Unfortunately it is nearly 2 years since her last test. We will repeat venous insufficiency testing to better elucidate which veins require intervention. We did discuss routine conservative measures including compression, elevation, exercise. She will follow up with us after testing. Thank you for allowing us to assist in her care. If there are any questions or concerns please do not hesitate to contact us. (2) Varicose veins of left lower extremity with inflammation: Comment: 11/21/2021 - left great saphenous vein radiofrequency ablation Code(s): I83.12 - Varicose veins of left lower extremity with inflammation Category: Medical Plan: See above Orders: Orders US venous duplex LE RT 1 Week I83.11 - Varicose veins of right lower extremity with inflammation Coding Level of Care Code Est Pt Level 4 (48055) Diagnoses Varicose veins of right lower extremity with inflammation I83.11 Varicose veins of left lower extremity with inflammation I83.12
== END 2023-11-11 09:34 | disposition home or self-care (01) ==
PROVIDERS: PCP Internal Medicine; Visit Provider Surgery Vascular Surgery
DX: I83.11 Varicose veins of right lower extremity with inflammation (principal); I83.12 Varicose veins of left lower extremity with inflammation
CPT/HCPCS: 99214

== ENCOUNTER → 2023-11-11 09:06 | Outpatient (BNVA) | payer BC, SELFPAY | PROVIDERS: PCP Internal Medicine; Visit Provider Surgery Vascular Surgery ==

== ENCOUNTER 2023-11-12 12:42 | Outpatient (REF) | payer BC, SELFPAY ==
--- NOTE | ~2023-11-12 | US_ITS ---
EXAMINATION: US LOWER EXTREMITY (REFLUX EXAM), RIGHT CLINICAL INDICATION: Varicose veins of right leg COMPARISON: Venous duplex February 23, 2022 TECHNIQUE: Color flow triplex imaging and compression Doppler was performed to evaluate both the deep and the superficial systems of the right lower extremity. To evaluate the superficial system, the examination was performed in the upright position. Color-flow Doppler ultrasound and compression ultrasound were utilized. In addition, maneuvers were utilized to demonstrate reflux. FINDINGS: 1. DEEP VENOUS DOPPLER ULTRASOUND: Common Femoral Vein: Compressible, normal respiratory variation and augmented flow. Femoral Vein: Compressible, normal color flow and augmentation. Popliteal Vein: Compressible, normal augmentation. Deep Reflux: There is no evidence of reflux in the deep system in either the common femoral vein or the popliteal vein. There is no evidence of a Gayle's cyst. 2. SUPERFICIAL VENOUS DOPPLER ULTRASOUND: GREAT SAPHENOUS VEIN: Saphenofemoral Junction: 0.7 cm; Reflux: 0 ms Proximal Thigh: 1.1 cm; Reflux: >2376 ms Mid Thigh: 0.5 cm; Reflux: 0 ms Above Knee: 0.5 cm; Reflux: 0 ms At Knee: 0.6 cm; Reflux: 1616 ms Below Knee: 0.5 cm; Reflux: >2464 ms Mid Calf: 0.2 cm; Reflux: 0 ms Ankle: 0.3 cm; Reflux: 0 ms DUPLICATED MEDIAL GREAT SAPHENOUS VEIN: Diameter: None Imaged Reflux: NA DUPLICATED LATERAL GREAT SAPHENOUS VEIN: Diameter: None Imaged Reflux: NA SMALL SAPHENOUS VEIN: Proximal: 0.4 cm; Reflux: 0 ms Distal: 0.3 cm; Reflux: 0 ms VEIN OF GIACOMINI: None Imaged. PERFORATORS: Location: GSV calf mid Size: 0.3 cm Reflux: 0 ms Location: 22 cm from heel Size: 0.2 cm Reflux: 1908 ms VARICOSITIES: Location: Small saphenous vein proximal Size: 0.4 cm Reflux: 0 ms Location: Great saphenous vein thigh proximal Size: 0.7 cm Reflux: Greater than 2748 ms Location: Great saphenous vein thigh mid Size: 0.4 cm Reflux: 0 ms Location: Great saphenous vein at the Size: 0.6 cm Reflux: Greater than 2720 ms Location: Great saphenous vein calf proximal Size: 1 cm Reflux: Greater than 2252 ms Location: Great saphenous vein calf distal Size: 0.3 cm Reflux: 0 ms US/US venous duplex LE RT IMPRESSION: 1. Right great saphenous vein insufficiency at the proximal thigh and knee. 2. Multiple varicosities in the right lower extremity. Electronically signed by: Terence Cardozo MD 11/13/2023 05:02 PM EDT RP
== END 2023-11-12 12:43 | disposition home or self-care (01) ==
LOC: HO.US 12:42
PROVIDERS: PCP Internal Medicine; Visit Provider Surgery Vascular Surgery
DX: I83.11 Varicose veins of right lower extremity with inflammation (principal)
CPT/HCPCS: 93971

== ENCOUNTER 2023-12-14 10:49 | Outpatient (AMB) | payer BC, SELFPAY ==
--- NOTE | 2023-12-14 10:51 | MHC.OFFVIS ---
Intake Visit Reasons: follow up s/p 11/12/23 Intake Note: Patient presents for follow up US 11/11. Patient states she has right leg pain , minimal swelling and bulging veins Allergies No Known Allergies Allergy (Verified 12/14/23 10:53) [facility] follow up s/p 11/12/23: Details: Very pleasant 58-year-old female presents for follow-up regarding venous insufficiency. She has large clusters of varicosities in the right lower extremity which have been a source of pain and discomfort for her. She now presents for routine follow-up with venous insufficiency testing. She has had no other interval issues. She has been using her compression with minimal relief. 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 Sexual orientation: Straight/Heterosexual Gender identity: Female Female Reproductive History Menstrual Age of Menarche: 9 Review of Systems Const Reports as per HPI ENT Reports no additional complaints Card Denies chest pain, Denies chest pain at rest and Denies chest pain with activity Resp Denies chest congestion and Denies cough GI Reports no additional complaints Musc Details: pain over varicosities, aching of lower extremities, swelling, cramping, heaviness and tiredness, itching Denies abnormal gait Skin/Breast Reports pruritus and Denies wounds Neuro Reports no additional complaints and Denies abnormal gait Psych Denies no additional complaints Physical Exam Const General: cooperative, healthy appearing and comfortable Orientation/consciousness: oriented to person, oriented to place and oriented to time Neck Carotids: no bruits Chest Chest palpation & inspection: normal inspection of the chest and normal palpation of entire chest wall Resp Effort & Inspection: normal respiratory effort and able to speak in complete sentences Cardio Rate: regular rate Heart sounds: S1 normal heart sound present and S2 normal heart sound present Peripheral pulses: Peripheral pulses 2+ throughout GI Inspection: Yes normal to inspection Skin Other: +2 edema, large rope-like varicosities greater than 4 mm right calf and thigh CEAP Classification C4 - skin color changes Ep - Etiology Primary As - superficial veins P - reflux General skin exam: dry skin Neuro General: oriented to person, oriented to place and oriented to time Extrem Right lower extremity: full ROM, normal capillary refill and edema Left lower extremity: full ROM, normal capillary refill and edema Psych Mental Status: mental status grossly normal Results Reviewed Results Reviewed: Brief summary of venous insufficiency testing is as follows: right great saphenous vein: Positive right small saphenous vein: negative right accessory vein: none present Please note there is no evidence of any venous aneurysms or significant tortuosity Assessment & Plan Assessment & Plan (1) Varicose veins of right lower extremity with inflammation: Code(s): I83.11 - Varicose veins of right lower extremity with inflammation Category: Medical Plan: This patient has varicose veins with inflammation. They continue to be a source of discomfort for the patient. The patient has tried conservative treatment with compression, leg elevation and exercise program for over 3 months time. They have been compliant with all treatment. This has provided minimal relief for the patient. I do not anticipate this course of treatment will alter the underlying etiology. The patient has been scheduled for lower extremity venous treatment inclusive of --- right great saphenous vein radiofrequency ablation. Risks, benefits, and complications of this procedure has been discussed in detail with the patient including but not limited to bleeding, infection, and the development of a DVT. The patient has demonstrated a clear understanding and has consented. We will schedule the patient as soon as possible. Thank you for allowing us to participate in this patient's care. If there are any questions or concerns please do not hesitate to contact us. Coding Level of Care Code Est Pt Level 4 (19875) Diagnoses Varicose veins of right lower extremity with inflammation I83.11
== END 2023-12-14 11:15 | disposition home or self-care (01) ==
PROVIDERS: PCP Internal Medicine; Visit Provider Surgery Vascular Surgery
DX: I83.11 Varicose veins of right lower extremity with inflammation (principal)
CPT/HCPCS: 99214

== ENCOUNTER → 2023-12-14 10:49 | Outpatient (BNVA) | payer BC, SELFPAY | PROVIDERS: PCP Internal Medicine; Visit Provider Surgery Vascular Surgery ==

== ENCOUNTER 2023-12-24 07:11 | Outpatient (AMB) | payer BC, SELFPAY ==
--- NOTE | 2023-12-24 08:26 | A.OFFVIS_ITS ---
Intake Visit Reasons: Right GSV RFA Accompanied by: Self / Same As Patient Allergies No Known Allergies Allergy (Verified 12/24/23 08:26) PFSH Medical History History of kidney stones Surgical History Hx of colonoscopy H/O tubal ligation Hx of knee surgery Family History Mother Diabetes HTN (hypertension) Brother Kidney disease Social History Household Members: Spouse Housing: Apartment Alcohol intake: current Alcohol intake frequency: holidays/special occasions only Patient Tobacco Use Status: Current everyday Tobacco user Cigarettes Per Day: 5 Years Smoked: 13 Current occupational status: employed 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 Anesthesia: Local infiltration 5 cc, Tumescent 450 cc. Estimated Blood Loss: minimal Specimen: Varicose veins The patient was transferred to the procedure suite and the insufficient saphenous vein was mapped by ultrasound and diagrammed on the overlying skin. The depth and diameter of the vein(s) to be treated was documented. The varicose tributary veins and suitable access sites were identified and mapped as well. The patient was then positioned supine on the procedure table. The affected limb was prepped and draped in the usual sterile fashion. The RF catheter was placed on the sterile field, flushed and wiped down, prepared, and connected by a sterile cable. The patient was placed in supine position and local anesthesia was instilled in the skin overlying the access site. A skin incision was made overlying the identified and mapped great saphenous vein entry site. The vein was accessed using ultrasound guidance and the Seldinger technique, a guide wire was introduced through the needle, which was then exchanged over the guide wire for a 6F sheath, which was secured in place. The guide wire was removed and the sheath was flushed. The RF catheter was placed into the vein through the sheath and preferentially, imaging was used to place the catheter tip just inferior to the superficial epigastric vein to preserve normal physiological flow in that vein. Additionally, it was confirmed by ultrasound guidance that the catheter tip was also placed a minimum of 1.5cm distal to the saphenofemoral junction. After the RF catheter position was verified by ultrasound, tumescent anesthesia was infiltrated, under ultrasound guidance, precisely into the perivenous compartment along the entire length of vein from the entry site to the saphenofemoral junction until a halo of fluid was noted around the vein. The patient was then placed in supine position to further exsanguinate the superficial venous system. After RF catheter position was again confirmed with ultrasound imaging, and under direct external compression along the length of the heating element, RF energy was applied. The vein was segmentally ablated by heating a 8 cm segment and then indexing the catheter forward by 7.5 cm until the treatment length is completed. Device temperature was maintained at 120 plus or minus 5 degrees C with an initial power level of 40W dropping to below 20W for each treatment. Total vein length treated 24 cm Total cycles of RF 4. Repeat ultrasound of the saphenous vein was performed, confirming successful treatment. The catheter and sheath were withdrawn and hemostasis established with direct pressure. After assuring hemostasis, the skin incision over the saphenous vein was closed with a bandage and a compression wrap, and/ or graduated compression stocking was applied from the level of the foot to the most proximal level of the thigh. 47423 - Endovenous RF, 1st Vein All charges added?: Procedure code (CPT) selection complete Assessment & Plan Assessment & Plan (1) Varicose veins of right lower extremity with inflammation: Comment: 12/24/2023 - right great saphenous vein radiofrequency ablation Code(s): I83.11 - Varicose veins of right lower extremity with inflammation Category: Medical Plan: See op note Coding Level of Care Code Procedure Only Diagnoses Varicose veins of right lower extremity with inflammation I83.11 CPT Codes Details - Vascular 1: 95278 - Endovenous RF, 1st Vein ([id number])
== END 2023-12-24 08:28 | disposition home or self-care (01) ==
PROVIDERS: PCP Internal Medicine; Visit Provider Surgery Vascular Surgery
DX: I83.11 Varicose veins of right lower extremity with inflammation (principal)
CPT/HCPCS: 36475

== ENCOUNTER → 2023-12-24 07:11 | Outpatient (BNVA) | payer BC, SELFPAY | PROVIDERS: PCP Internal Medicine; Visit Provider Surgery Vascular Surgery | DX: I83.11 Varicose veins of right lower extremity with inflammation (principal) | CPT/HCPCS: 36475; J2003; J2004 ==

== ENCOUNTER 2023-12-27 14:19 | Outpatient (REF) | payer BC, SELFPAY ==
--- NOTE | ~2023-12-27 | US_ITS ---
EXAMINATION: TRIPLEX SCANNING OF RIGHT LOWER EXTREMITY; SUPERFICIAL ULTRASOUND WITH DOPPLER OF RIGHT LOWER EXTREMITY CLINICAL INFORMATION: Status post radiofrequency ablation of the right great saphenous vein Originally performed on 12/24/2023. COMPARISON: 11/12/2023. TECHNIQUE: Color flow triplex imaging and compression Doppler were performed as well as superficial ultrasound with Doppler. FINDINGS: RIGHT LOWER EXTREMITY DEEP VENOUS SYSTEM: Respiratory variation, normal compression and augmented flow are noted throughout the lower extremity. The visualized common femoral vein, femoral vein, profunda femoral vein, popliteal vein and the calf veins show no evidence of deep venous thrombosis. There is no evidence of Gayle's cyst. SUPERFICIAL VENOUS SYSTEM: The great saphenous vein is occluded from the access site to 0.5 cm before the saphenofemoral junction. There is no extension of thrombus into the deep system. US/US venous duplex LE RT IMPRESSION: 1. No evidence of DVT. 2. Excellent appearance status post ablation of the right great saphenous vein. Electronically signed by: Iván Corbett MD 12/27/2023 03:36 PM EDT
== END 2023-12-27 14:20 | disposition home or self-care (01) ==
LOC: HO.US 14:19
PROVIDERS: PCP Internal Medicine; Visit Provider Surgery Vascular Surgery
DX: M79.604 Pain in right leg (principal)
CPT/HCPCS: 93971

== ENCOUNTER 2024-01-11 15:09 | Outpatient (AMB) | payer BC, SELFPAY ==
[2024-01-11 15:14] VITALS: BMI 35.1
--- NOTE | 2024-01-11 15:14 | A.OFFVIS_ITS ---
Vital Signs 01/11/24 15:14 Height 5 ft 3 in Weight 198 lb BMI 35.1 Intake Visit Reasons: 2 week follow up Right GSV RFA 12/24/23 Intake Note: 2 week follow up Right GSV RFA 12/24/23 and Hx of Left LE venous procedures 2+yrs ago. Pt has no complaints Hat Trimmer Required: No Accompanied by: Self / Same As Patient Allergies No Known Allergies Allergy (Verified 01/11/24 15:16) HPI HPI 2 week follow up Right GSV RFA 12/24/23: Details: Very pleasant 58-year-old female presents for follow-up status post right great saphenous radiofrequency ablation. She does report overall swelling and disc omfort have decreased. She is now concerned about this large varicosity coursing through her thigh and the anterior portion of her knee. This has been a source of discomfort for her. 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 Sexual orientation: Straight/Heterosexual Gender identity: Female Female Reproductive History Menstrual Age of Menarche: 9 Review of Systems Const Reports as per HPI ENT Reports no additional complaints Card Denies chest pain, Denies chest pain at rest and Denies chest pain with activity Resp Denies chest congestion and Denies cough GI Reports no additional complaints Musc Details: pain over varicosities, aching of lower extremities, swelling, cramping, heaviness and tiredness, itching Denies abnormal gait Skin/Breast Reports pruritus and Denies wounds Neuro Reports no additional complaints and Denies abnormal gait Psych Denies no additional complaints Physical Exam Vital Signs: BMI result Body Mass Index 35.1 Const General: cooperative, healthy appearing and comfortable Orientation/consciousness: oriented to person, oriented to place and oriented to time Neck Carotids: no bruits Chest Chest palpation & inspection: normal inspection of the chest and normal palpation of entire chest wall Resp Effort & Inspection: normal respiratory effort and able to speak in complete sentences Cardio Rate: regular rate Heart sounds: S1 normal heart sound present and S2 normal heart sound present Peripheral pulses: Peripheral pulses 2+ throughout GI Inspection: Yes normal to inspection Skin Other: +2 edema, large rope-like varicosities greater than 4 mm right thigh and knee CEAP Classification C4 - skin color changes Ep - Etiology Primary As - superficial veins P - reflux General skin exam: dry skin Neuro General: oriented to person, oriented to place and oriented to time Extrem Right lower extremity: full ROM, normal capillary refill and edema Left lower extremity: full ROM, normal capillary refill and edema Psych Mental Status: mental status grossly normal Assessment & Plan Assessment & Plan (1) Varicose veins of right lower extremity with inflammation: Comment: 12/24/2023 - right great saphenous vein radiofrequency ablation Code(s): I83.11 - Varicose veins of right lower extremity with inflammation Category: Medical Plan: This patient has varicose veins with inflammation. They continue to be a source of discomfort for the patient. The patient has tried conservative treatment with compression, leg elevation and exercise program for over 3 months time. They have been compliant with all treatment. This has provided minimal relief for the patient. I do not anticipate this course of treatment will alter the underlying etiology. The patient has been scheduled for lower extremity venous treatment inclusive of --- right leg microphlebectomy. Risks, benefits, and complications of this procedure has been discussed in detail with the patient including but not limited to bleeding, infection, and the development of a DVT. The patient has demonstrated a clear understanding and has consented. We will schedule the patient as soon as possible. Thank you for allowing us to participate in this patient's care. If there are any questions or concerns please do not hesitate to contact us. Coding Level of Care Code Est Pt Level 4 (77168) Diagnoses Varicose veins of right lower extremity with inflammation I83.11
== END 2024-01-11 15:27 | disposition home or self-care (01) ==
LOC: HO.HVS 15:10
PROVIDERS: PCP Internal Medicine; Visit Provider Surgery Vascular Surgery
DX: I83.11 Varicose veins of right lower extremity with inflammation (principal)
CPT/HCPCS: 99214

== ENCOUNTER 2024-03-10 08:16 | Outpatient (AMB) | payer BC, SELFPAY ==
[2024-03-10 08:19] VITALS: BMI 35.1
--- NOTE | 2024-03-10 08:19 | MHC.OFFVIS ---
Vital Signs 03/10/24 08:19 Height 5 ft 3 in Weight 198 lb BMI 35.1 Intake Visit Reasons: Right Micro Accompanied by: Self / Same As Patient Allergies No Known Allergies Allergy (Verified 03/10/24 08:19) PFSH Medical History History of kidney stones Surgical History Hx of colonoscopy H/O tubal ligation Hx of knee surgery Family History Mother Diabetes HTN (hypertension) Brother Kidney disease Social History Household Members: Spouse Housing: Apartment Alcohol intake: current Alcohol intake frequency: holidays/special occasions only Patient Tobacco Use Status: Current everyday Tobacco user Cigarettes Per Day: 5 Years Smoked: 13 Current occupational status: employed 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 Varicose veins were marked in the standing position on the right leg and the patient was then placed in the supine position. The right lower extremity was prepared and draped to allow knee flexion in the sterile field. The patient had large superficial varicose veins with significant symptoms of pain. It was therefore determined to perform microphlebectomies of the clusters of varicose veins. The patient had bulging varicose veins which were previously marked in the standing position. A small stab incision was made longitudinally directly overlying the varicose vein in the calf and the varicose vein was grasped with a hemostat aided by a vein hook. It was then dissected as far proximally and distally as possible and avulsed. A total of 21 stab incisions were made and the procedure of stab phlebectomies was repeated 21 times. Hemostasis was checked and stab incision sites were closed with steri-strips and sterile dressing was given with gauze and krilex wrap followed by an jennifer bandage. There were no complications and blood loss was minimal. Post-Op instructions were given and a follow-up appointment was recommended. 29586 - Stab Phlebectomy >20 All charges added?: Procedure code (CPT) selection complete Assessment & Plan Assessment & Plan (1) Varicose veins of right lower extremity with inflammation: Comment: 12/24/2023 - right great saphenous vein radiofrequency ablation 03/10/2024 - right leg microphlebectomy Code(s): I83.11 - Varicose veins of right lower extremity with inflammation Category: Medical Plan: See op note Coding Level of Care Code Procedure Only Diagnoses Varicose veins of right lower extremity with inflammation I83.11 CPT Codes Details - Vascular 6: 22776 - Stab Phlebectomy >20 ([id number])
== END 2024-03-10 09:30 | disposition home or self-care (01) ==
PROVIDERS: PCP Internal Medicine; Visit Provider Surgery Vascular Surgery
DX: I83.11 Varicose veins of right lower extremity with inflammation (principal)
CPT/HCPCS: 37766

== ENCOUNTER → 2024-03-10 08:16 | Outpatient (BNVA) | payer BC, SELFPAY | PROVIDERS: PCP Internal Medicine; Visit Provider Surgery Vascular Surgery | DX: I83.11 Varicose veins of right lower extremity with inflammation (principal) | CPT/HCPCS: 37766; J2003 ==

== ENCOUNTER 2024-03-23 14:41 | Outpatient (AMB) | payer BC, SELFPAY ==
--- NOTE | 2024-03-23 14:46 | A.OFFVIS_ITS ---
Intake Visit Reasons: 2 week follow up Right Micro 03/10/24 Intake Note: Patient presents for 2 week follow up micro . No complaints. Accompanied by: Self / Same As Patient Allergies No Known Allergies Allergy (Verified 03/23/24 14:47) HPI HPI 2 week follow up Right Micro 03/10/24: Details: Very pleasant 58-year-old female presents for follow-up regarding right lower extremity microphlebectomy. She reports that overall her legs have done significantly better since all of this. Overall swelling and discomfort have significantly improved. She now presents for routine follow-up. 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 Sexual orientation: Straight/Heterosexual Gender identity: Female Female Reproductive History Menstrual Age of Menarche: 9 Review of Systems Const All systems reviewed & are unremarkable except as noted in HPI and below Reports no additional complaints ENT Reports Normal hearing present Card Denies chest pain, Denies chest pain at rest, Denies chest pain with activity and Denies pedal edema Resp Denies cough GI Denies abdominal pain Musc Denies abnormal gait, Denies muscle cramps and Denies radiating pain into limb Skin/Breast Denies skin ulcer and Denies wounds Neuro Reports Normal hearing present and Denies abnormal gait Psych Reports no additional complaints Physical Exam Const General: cooperative, healthy appearing and comfortable Orientation/consciousness: oriented to person, oriented to place and oriented to time HEENT Head: Yes normal to inspection Neck Neck: Yes normal visual inspection Carotids: no bruits Chest Chest palpation & inspection: normal inspection of the chest Resp Effort & Inspection: normal respiratory effort and able to speak in complete sentences Auscultation: clear to auscultation bilaterally, no crackles, no rales, no rhonchi and no wheezes Cardio Rate: regular rate Rhythm: regular rhythm Heart sounds: S1 normal heart sound present and S2 normal heart sound present Bruits: no carotid bruits Peripheral pulses: Peripheral pulses 2+ throughout GI Inspection: Yes normal to inspection Skin Wounds: no wounds Hair: normal Neuro General: oriented to person, oriented to place and oriented to time Cranial nerves: Yes CN's II-XII intact bilaterally and Yes Normal hearing present Cognition (Neuro): normal cognition Motor exam (neuro): 5/5 motor strength present throughout Extrem Other: venous exam: No significant superficial varicosities or spider telangiectasias, minimal edema General: No clubbing, No cyanosis and No edema Psych Appearance: grossly normal Mental Status: mental status grossly normal Speech and movement: Normal speech and movement present Assessment & Plan Assessment & Plan (1) Varicose veins of right lower extremity with inflammation: Comment: 12/24/2023 - right great saphenous vein radiofrequency ablation 03/10/2024 - right leg microphlebectomy Code(s): I83.11 - Varicose veins of right lower extremity with inflammation Category: Medical Plan: The patient has done extremely well with all venous treatments. Patient's may often experience postprocedure phlebitic episodes and I have discussed with the patient use of warm compresses and NSAIDS if tolerated for pain discomfort. In addition, I have discussed continued conservative measures including use of compression, leg elevation, and exercise. The patient was also given an information sheet regarding appropriate use of compression stockings and future purchases. Thank you for allowing us to care for your patient with venous disease. (2) Varicose veins of left lower extremity with inflammation: Comment: 11/21/2021 - left great saphenous vein radiofrequency ablation Code(s): I83.12 - Varicose veins of left lower extremity with inflammation Category: Medical Plan: See above Coding Level of Care Code Est Pt Level 3 (66282) Diagnoses Varicose veins of right lower extremity with inflammation I83.11 Varicose veins of left lower extremity with inflammation I83.12
== END 2024-03-23 15:16 | disposition home or self-care (01) ==
PROVIDERS: PCP Internal Medicine; Visit Provider Surgery Vascular Surgery
DX: I83.11 Varicose veins of right lower extremity with inflammation (principal); I83.12 Varicose veins of left lower extremity with inflammation
CPT/HCPCS: 99213

== ENCOUNTER 2024-09-01 16:18 | Outpatient (AMB) | payer BC, SELFPAY ==
--- NOTE | 2024-09-01 16:29 | MHC.PC.OV ---
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 She currently lives at home and feels safe there. 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 Reports rare alcohol use. No cigarette smoking or illicit drug use. Varicose veins of the bilateral lower extremities-s/p radio ablation. Follows with vascular surgery. Denies any pain or swelling in the lower extremities. Obesity-BMI 34.4. She is not actively trying to lose weight but does follow a healthy diet. Since last visit, has lost about 6 lb. She is not exercising formally but reports she is very active at work. Concerns: Reports a tingling sensation in the left big toe but also has occasional paresthesias in the bilateral lower legs. She states this is not overly bothersome. No pain. 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 veins. no swelling or pain. Reports this occurs regardless of shoes Health Maintenance: S colonoscopy 2021 with 10 year follow-up advised. Dr. Francisco Last Pap 03/2020 with 5 year follow-up advised. Follows annually with Dr. Ramirez Last mammogram 02/2023, overdue ROS: General: No fevers, malaise, unintentional weight loss HEENT: No blurred vision, diplopia. No sore throat, nasal congestion, rhinorrhea, sinus pain, ear pain Cardiovascular: No chest pain, palpitations, or leg edema Respiratory: No shortness of breath, wheezing, cough GI: No abdominal pain, nausea, vomiting, diarrhea, constipation, melena, hematochezia : No dysuria, hematuria, increased urinary frequency, decreased urinary output MSK: No myalgia, back pain Neuro: No headaches, weakness, paresthesias Skin: No rashes or lesions EXAM: Constitutional - Awake and Alert, No apparent distress Eyes - PERRLA, EOMI. Anicteric Nose- septum midline, nares clear, no sinus tenderness Mouth/throat- mucosa moist, tongue and uvula midline, no erythema/edema or tonsillar adenopathy. Neck-trachea midline, thyroid symmetric without palpable nodules, no adenopathy Cardiovascular - S1S2, RRR, No edema Respiratory - Normal lung expansion, Normal respiratory effort, No respiratory distress, CTA bilaterally Gastrointestinal - NT / ND; +BS; No rebound or guarding - No CVA tenderness Extremities - no calf tenderness bilaterally, no swelling Musculoskeletal - Normal inspection, normal ROM Skin - Warm/Dry Neurological - Alert & oriented x3, CN II-XII in tact, 5/5 strength BUE and BLE. Decreased sensation left great toe Psychological - Appropriate affect [facility] Medical History (Updated 09/01/24 @ 17:01 by ESAU Bowman) Obesity History of kidney stones Surgical History Hx of colonoscopy H/O tubal ligation Hx of knee surgery Family History Mother Diabetes HTN (hypertension) Brother Kidney disease Social History Household Members: Spouse Housing: Apartment Alcohol intake: current Alcohol intake frequency: holidays/special occasions only Patient Tobacco Use Status: Current everyday Tobacco user Cigarettes Per Day: 5 Years Smoked: 13 Current occupational status: employed 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 1. Little interest or pleasure in doing things: not at all 2. Feeling down, depressed, or hopeless: not at all 3. Trouble falling or staying asleep, or sleeping too much: not at all 4. Feeling tired or having little energy: not at all 5. Poor appetite or overeating: not at all 6. Feeling bad about yourself - or that you are a failure or have let yourself or your family down: not at all 7. Trouble concentrating on things, such as reading the newspaper or watching television: not at all 8. Moving or speaking so slowly that other people could have noticed. Or the opposite - being so fidgety or restless that you have been moving around a lot more than usual: not at all 9. Thoughts that you would be better off or of hurting yourself in some way: not at all Total score: 0 Depression Screening Interpretation: Negative Depression Screening Done: Yes 67643 - PHQ-9 Billing: Yes Source: Developed by Drs. Vick Ruiz, Marialuisa Cruz, George Servin and colleagues, with an educational catalina from [email or web address]. Thrive Questionnaire Date Thrive assessed: 09/01/24 I am a: Patient What is your living situation today?: I have a steady place to live Within the past 12 months, did the food you bought not last and you didn't have the money to get more?: Never true Within the past 12 months, did you worry whether your food would run out before you got money to buy more?: Never true Do you have trouble paying for medicines?: No Do you have trouble getting transportation to medical appointments?: No Do you have trouble paying your heating and electricity bill?: No Do you have trouble taking care of your child, family member or friend?: No Do you have trouble with day-to-day activities such as bathing, preparing meals, shopping, managing finances, etc.?: No Are you currently unemployed and looking for a job?: No Are you interested in more education?: No Please select the resources that you would like help with: None THRIVE Score: 0 NAZIA-7 AMB Questionnaire NAZIA-7 Date NAZIA - 7 assessed: 09/01/24 Feeling nervous, anxious, or on edge: 0 = Not at all Not being able to stop or control worryin = Not at all Worrying too much about different things: 0 = Not at all Trouble relaxin = Not at all Being so restless that it is hard to sit still: 0 = Not at all Becoming easily annoyed or irritable: 0 = Not at all Feeling afraid as if something awful might happen: 0 = Not at all Total NAZIA-7 score (0-4 normal; 5-9 mild; 10-14 moderate; 15-21 severe): 0 Source: Developed by Drs. Vick L. JosephMarialuisa hope, George Servin and colleagues, with an educational catalina from [email or web address]. Physical exam (Primary Care) Vital Signs: Last Vital Signs Temp 97.5 F 09/01/24 16:33 Pulse 89 09/01/24 16:33 Resp 18 09/01/24 16:33 BP 134/72 09/01/24 16:33 Pulse Ox 98 09/01/24 16:33 Oxygen Delivery Method Room Air 09/01/24 16:33 BMI result Body Mass Index 34.4 Tobacco/Smoking Status: Tobacco use Status Patient Tobacco Use Status Current everyday Tobacco 09/01/24 16:30 PHQ-9: PHQ-9 Score PHQ-9: Total score 0 09/01/24 16:35 Depression Screening Interpretation: Negative Thrive Assessment: Date of Thrive Assessment Date Thrive assessed 09/01/24 09/01/24 16:32 Coding Level of Care Code New Pt Prev Care 40-64y(23261) Diagnoses Routine medical exam Z00.00 Paresthesia of lower extremity R20.2 Varicose veins of right lower extremity with inflammation I83.11 Obesity E66.9 Additional Codes PHQ-9 - 09005 - PHQ-9 Billing: Yes ([id number]) Assessment & Plan Assessment & Plan (1) Routine medical exam: Code(s): Z00.00 - Encounter for general adult medical examination without abnormal findings Plan: 59-year-old female presents for annual physical exam. Overall, good general state of health (2) Paresthesia of lower extremity: Code(s): R20.2 - Paresthesia of skin Category: Medical Plan: Will monitor for now. Recommend supportive foot wear and compression stockings as needed. Check TSH and vitamin B12 (3) Varicose veins of right lower extremity with inflammation: Comment: 12/24/2023 - right great saphenous vein radiofrequency ablation 03/10/2024 - right leg microphlebectomy Code(s): I83.11 - Varicose veins of right lower extremity with inflammation Category: Medical Plan: Stable. Follow-up with vascular surgery (4) Obesity: Code(s): E66.9 - Obesity, unspecified Category: Medical Plan: Weight loss efforts encouraged. Commended on weight loss e thus far Plan Routine screening labs as ordered below Continue with screening mammograms, Pap smears, colonoscopies Continue following for annual skin exams and use sun protection Annual eye exams Wear seat belt in car Recommend regular exercise and healthy diet Follow been 1 year for annual physical exam Orders: Orders Basic Metabolic Panel Today Z00.00 - Encounter for general adult medical examination without abnormal findings Complete Blood Count Auto Diff Today Z00.00 - Encounter for general adult medical examination without abnormal findings Lipid Panel Today Z00.00 - Encounter for general adult medical examination without abnormal findings Liver Panel Today Z00.00 - Encounter for general adult medical examination without abnormal findings Vitamin B12 Today R20.2 - Paresthesia of skin TSH reflex Free T4 Today R20.2 - Paresthesia of skin Hemoglobin A1c Today Z00.00 - Encounter for general adult medical examination without abnormal findings Vitamin D 25-OH Total Today Z00.00 - Encounter for general adult medical examination without abnormal findings MM tomosynthesis screening BI Today Z12.31 - Encounter for screening mammogram for malignant neoplasm of breast
[2024-09-01 16:33] VITALS: BP 134/72; PULSE 89; RESP 18; TEMP 36.4; O2SAT 98; BMI 34.4
== END 2024-09-01 16:55 | disposition home or self-care (01) ==
LOC: HO.HMCHD 16:18
PROVIDERS: PCP Internal Medicine; Visit Provider Physician Assistant
DX: Z00.00 Encounter for general adult medical examination without abnormal findings (principal); R20.2 Paresthesia of skin; I83.11 Varicose veins of right lower extremity with inflammation; E66.9 Obesity, unspecified

== ENCOUNTER → 2024-09-01 16:18 | Outpatient (BNVA) | payer BC, SELFPAY | PROVIDERS: PCP Internal Medicine; Visit Provider Physician Assistant | DX: Z00.00 Encounter for general adult medical examination without abnormal findings (principal); R20.2 Paresthesia of skin; I83.11 Varicose veins of right lower extremity with inflammation; E66.9 Obesity, unspecified; Z68.34 Body mass index [BMI] 34.0-34.9, adult; Z13.31 Encounter for screening for depression; Z13.30 Encounter for screening examination for mental health and behavioral disorders, unspecified | CPT/HCPCS: 96127 ==

== ENCOUNTER 2024-09-02 07:25 | Outpatient (REF) | payer BC, SELFPAY ==
[2024-09-02 07:50] LABS: MANUAL DIFF FLAG NO
[2024-09-02 08:30] LABS: Basophils Percent Auto 0.6 % (0-2); Eosinophils Absolute Auto 0.2 X10*3/uL (0.0-0.4); Eosinophils Percent Auto 2.7 % (0-4); Hematocrit 43.9 % (37.0-47.0); Hemoglobin 14.6 g/dl (12.0-16.0); Imm Gran Abs Auto 0.02 X10*3/uL (0.00-0.03); Imm Gran Pct Auto 0.3 % (0.0-0.4); Lymphocytes Absolute Auto 2.5 X10*3/uL (1.2-4.9); Lymphocytes Percent Auto 37.5 % (20-40); Mean Corpuscular HGB Conc 33.3 g/dl (31.0-35.0); Mean Corpuscular Hemoglobin 31.5 pg (27.0-33.0); Mean Corpuscular Volume 94.6 fL (80.0-98.0); Monocytes Absolute Auto 0.6 X10*3/uL (0.1-1.2); Monocytes Percent Auto 8.6 % (2-11); Neutrophils Absolute Auto 3.4 x10*3/uL (2.0-8.3); Neutrophils Percent Auto 50.3 % (45-73); Platelet Count 200 X10*3/uL (160-400); Red Blood Count 4.64 X10*6/uL (4.20-5.50); Red Cell Distribution Width 12.9 % (11.0-16.0); White Blood Count 6.7 X10*3/uL (4.8-10.8)
[2024-09-02 08:41] LABS: Estimated Average Glucose 214 mg/dL; Hemoglobin A1c % 9.1 % (<6.0)
[2024-09-02 09:05] LABS: Alanine Aminotransferase 35 U/L (0-31); Albumin Level 4.2 g/dL (3.5-5.0); Alkaline Phosphatase 85 U/L (39-117); Anion Gap 11 (12-20); Aspartate Amino Transferase 28 U/L (5-31); Bilirubin Direct 0.1 mg/dL (0.0-0.5); Bilirubin Total 0.3 mg/dL (0.0-1.0); Blood Urea Nitrogen 12 mg/dL (9-16); Carbon Dioxide 29 mmol/L (22-29); Chloride 104 mmol/L (96-108); Cholesterol 170 mg/dL (<200); Estimated Glomerular Filt Rate > 60; Glucose Random 214 mg/dL (60-115); HDL Cholesterol 46 mg/dL (>40); LDL Cholesterol Calculated 92 mg/dL (<100); Potassium 4.8 mmol/L (3.3-5.1); Sodium 139 mmol/L (135-145); Total Protein 7.1 g/dL (6.5-8.0); Triglycerides 161 mg/dL (<150)
[2024-09-02 09:21] LABS: TSH reflex Free T4 1.16 uIU/mL (0.32-4.0); Vitamin D 25-OH Total 36.2 ng/mL (>30)
[2024-09-02 09:26] LABS: Vitamin B12 688 pg/mL (200-900)
== END 2024-09-02 07:26 | disposition home or self-care (01) ==
LOC: HO.LAB 07:25
PROVIDERS: PCP Physician Assistant; Visit Provider Physician Assistant
DX: Z00.00 Encounter for general adult medical examination without abnormal findings (principal); R20.2 Paresthesia of skin; Z13.1 Encounter for screening for diabetes mellitus; Z13.6 Encounter for screening for cardiovascular disorders
CPT/HCPCS: 36415; 80048; 80061; 80076; 82306; 82607; 83036; 84443; 85025

== ENCOUNTER 2024-10-24 12:52 | Outpatient (AMB) | payer BC, SELFPAY ==
--- NOTE | 2024-10-24 13:28 | A.OFFVIS_ITS ---
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 Accompanied by: Self / Same As Patient Allergies No Known Allergies Allergy (Verified 09/01/24 16:33) HPI Comprehensive Diabetes Asmnt Most Recent Diabetes Results: Microalb/Creat Ratio, (<30) 4.1 ug/mg cr 12/11/22 Cholesterol, (<200) 170 mg/dL 09/02/24 HDL Cholesterol, (>40) 46 mg/dL 09/02/24 Triglycerides, (<150) 161 mg/dL H 09/02/24 Creatinine, (0.5-1.4) 0.87 mg/dL 09/02/24 BUN, (9-16) 12 mg/dL 09/02/24 Sodium, (135-145) 139 mmol/L 09/02/24 Potassium, (3.3-5.1) 4.8 mmol/L 09/02/24 Chloride, (96-108) 104 mmol/L 09/02/24 Carbon Dioxide, (22-29) 29 mmol/L 09/02/24 Calcium, (8.4-10.2) 10.0 mg/dL 09/02/24 AST, (5-31) 28 U/L 09/02/24 ALT, (0-31) 35 U/L H 09/02/24 Total Protein, (6.5-8.0) 7.1 g/dL 09/02/24 Albumin, (3.5-5.0) 4.2 g/dL 09/02/24 [facility] Medical History (Updated 09/04/24 @ 08:36 by ESAU Bowman) Type 2 diabetes mellitus Obesity History of kidney stones Surgical History Hx of colonoscopy H/O tubal ligation Hx of knee surgery Family History Mother Diabetes HTN (hypertension) Brother Kidney disease Social History Household Members: Spouse Housing: Apartment Alcohol intake: current Alcohol intake frequency: holidays/special occasions only Patient Tobacco Use Status: Current everyday Tobacco user Cigarettes Per Day: 5 Years Smoked: 13 Current occupational status: employed 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 2= needs review? 3= comprehend keep point? 4= demonstrates understanding/ competent? NC= Not Covered Topics Learning Objective: Initial visit Initial or post srvc Initial or post srvc Initial or post srvc Initial or post srvc Initial or post srvc Post srvc Comments Pre Edu-assessment/plan Outcome or reassess Outcome or reassess Outcome or reassess Outcome or reassess Outcome or reassess Outcome or reassess Diabetes pathophysiology 1 Healthy eating 2 Being active 1 Taking medication 2 A Monitoring glucose 1 Acute complication 1 Chronic complicated 2 Lifestyle and healthy coping 2 Diabetes distress in support 1 ?Diabetes pathophysiology: ?Defined diabetes med identify own type of diabetes; list 3 options for treating diabetes Healthy eating: ?Described effect of type, amount and ?timing of food on blood glucose; list 3 methods for planning meal Being active: ?State effect of exercise on blood glucose level Taking medication: ?State effect of diabetes medications on diabetes; name diabetes medications taking, action and side effects Monitoring glucose: ?Identify recommended blood glucose targets and personal target Acute complication: ?List symptoms and treatment of hyper and hypoglycemia, DKA, sick day guidelines and guidelines for severe weather or situations of crisis and diabetes supply manage Chronic complication: ?To find the relationship of blood glucose levels to long- term complications of diabetes in screening and preventative measures Lifestyle and healthy coping: ?Described lifestyle and healthy coping strategies to rule out diabetes self-management Diabetes to stress and support: ?Recognize Diabetes to stress and be able to identified Learning objectives: The patient was provided with verbal and written education on the following topics as outlined below. The patient met all learning objectives and was able to verbalize understanding and provide teach back of education topics discussed . The patient was provided with the opportunity to ask questions and all questions were answered. 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 Patient reports she has a family history of type 2 diabetes. Stated her mom from complications of diabetes What is Diabetes? Pathophysiology How the body produces and uses insulin Identify type of DM Risk factors Signs of Diabetes Brief overview of Diabetes Management Monitoring blood sugar Following a meal plan Regular exercise Maintaining a healthy weight Taking medication as needed Members of the care team (PCP, RN, MA, RD, CDE, coil machine supervisor) Blood glucose monitoring When/how often to test Target blood sugar ranges Patient reports testing fasting glucose only, fasting glucose range from 125 to 172 mg/dL Introduction to Nutrition Importance of healthy diet in managing DM Diet is personalized to individual preference Review patient?s regular diet/food preferences Who prepares meals/does food shopping/ Dining out?/ Barriers? How diet effects glucose Eating 3 balanced meals a day with small, healthy snacks between meals Review food groups Carbohydrates: What is a carbohydrate/Which food/food groups are considered carbohydrates Effect of carbohydrates on blood glucose Portion sizes Reading food labels Basic carb counting (if applicable per nursing assessment) Plate method Meal planning Recommendations: Follow plate method, consistent carbs and read nutritional labels. Smart Goal: Patient will test glucose at various times of the day Educational Materials: The patient was provided with the following written educational materials: Planning Healthy Meals Handout Patient Response to instructions: Comprehension of Instructions: Good Readiness to make changes: Contemplation How confident they feel about making changes: Positive Portions of this note were created using voice recognition software, please excuse any words or phrases that may have been misinterpreted. Patient Instructions: Include regular daily activity. ADA recommends 30 minutes of exercise 5 days a week. Weight loss talk to PCP or Museum Registrar before starting new plan. Test blood sugar as directed; Fasting and 2hpp largest meal. Watch trends in results. Utilize results and to assess how food, physical activity and medications affect blood sugar results. Bring glucometer or CGM to next visit. Be knowledgeable about diabetes medication, its action, side effects, efficacy, toxicity, prescribed dosage, appropriate timing and frequency of administration, effect of missed and delayed doses and instructions for storage, travel and safety. Problem solving techniques to monitor hypo/hyperglycemia episodes and treatments. Reduce risk reduction behaviors, smoking cessation, regular eye, foot and dental examinations. Follow-up with retort load expediter in 2 months Coding Level of Care Code Est Pt Level 1 (04978) Diagnoses Type 2 diabetes mellitus E11.9
--- OUTSIDE RECORDS SUMMARY | 2024-10-24 14:02 | XMS_ITS | Patient Health Record ---
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 Name Role Phone Rebecca (RETIRED) Yaw MEDINA Primary Care Provide r Unavailable Vick Metz Unavailable [phone] Reason For Referral No Information Problems Problem Type SNOMED Code ICD Code Onset Dates Problem Status W/U Status Risk Notes Problem [id number] Encounter for screening for malignant neoplasm of colon (Z12.11) Active confirmed Problem Encounter for screening for malignant neoplasm of rectum (Z12.12) Active confirmed Problem [id number] Preprocedural examination (Z01.818) Active confirmed Plan Of Treatment Pending Test Test Name Order Date GI BIOPSY 08/22/2015 Future Test Test Name Order Date COLONOSCOPY 06/19/2015 Insurance Providers Payer Name Payer Address Payer Phone Subscriber Number Group Number Insured Name Patient Relationship to Insured Coverage Start Date Coverage End Date [facility] [address] [place] [phone] [id number] EMILY ROBERT Self - patient is the insured Medical (General) History Medical History History ICD Code kidney stones Denies CA,DM,CVA,Lung disease,renal dise ase Surgical History Surgery Date(Month/Year) Knee surgery x2 Kidney stone removal by cystoscopy BTL
== END 2024-10-24 13:31 | disposition home or self-care (01) ==
LOC: HO.ENCR 12:53
PROVIDERS: PCP Physician Assistant; Visit Provider Registered Nurse Diabetes Educator
DX: E11.9 Type 2 diabetes mellitus without complications (principal)
CPT/HCPCS: 99499

== ENCOUNTER 2024-11-17 16:17 | Outpatient (REF) | payer BC, SELFPAY ==
--- NOTE | ~2024-11-17 | MM_ITS ---
EXAMINATION: MM SCREENING DIGITAL BREAST TOMOSYNTHESIS, BILATERAL CLINICAL INFORMATION: Screening. Asymptomatic. COMPARISON: Mammography: Comparison is made with available priors TECHNIQUE: Digital breast mammography with tomosynthesis is performed in both the craniocaudal and mediolateral oblique views along with computer-aided detection (CAD). FINDINGS: There are scattered areas of fibroglandular density (ACR BI-RADS breast composition Category b). There are no significant masses, abnormal calcifications, or other abnormalities. MM/MM tomosynthesis screening BI IMPRESSION: No mammographic evidence of malignancy. ASSESSMENT: BI-RADS BI-RADS 1 - Negative RECOMMENDATION: Routine annual mammography screening. 1 year F/U This examination should not preclude the clinical evaluation of a suspicious palpable abnormality. This patient's information was entered into a reminder system with a target due date for their next mammogram. Electronically signed by: Jane Combs DO 11/21/2024 02:54 PM EDT
--- OUTSIDE RECORDS SUMMARY | 2024-11-17 17:52 | XMS_ITS | Patient Health Record ---
Author Organization [facility] Address [address] [place] [address] Care Team Providers Care Customs Inspector Name Role Phone Rebecca (RETIRED) Yaw MEDINA Primary Care Provide r Unavailable Vick Metz Unavailable [phone] Reason For Referral No Information Problems Problem Type SNOMED Code ICD Code Onset Dates Problem Status W/U Status Risk Notes Problem [id number] Encounter for screening for malignant neoplasm of colon (Z12.11) Active confirmed Problem Screening for malignant neoplasm of rectum ([id number]) Encounter for screening for malignant neoplasm of rectum (Z12.12) Active confirmed Problem [id number] Preprocedural examination (Z01.818) Active confirmed Plan Of Treatment Pending Test Test Name Order Date GI BIOPSY 08/22/2015 Future Test Test Name Order Date COLONOSCOPY 06/19/2015 Insurance Providers Payer Name Payer Address Payer Phone Subscriber Number Group Number Insured Name Patient Relationship to Insured Coverage Start Date Coverage End Date [facility] [address] [place] [phone] [id number] EMILY ROBERT Self - patient is the insured Medical (General) History Medical History History ICD Code kidney stones Denies HI,DM,CVA,Lung disease,renal dise ase Surgical History Surgery Date(Month/Year) Knee surgery x2 Kidney stone removal by cystoscopy BTL
== END 2024-11-17 16:18 | disposition home or self-care (01) ==
LOC: HO.MAMMO 16:17
PROVIDERS: PCP Physician Assistant; Visit Provider Physician Assistant
DX: Z12.31 Encounter for screening mammogram for malignant neoplasm of breast (principal)
CPT/HCPCS: 77063; 77067

== ENCOUNTER → 2024-11-17 16:30 | Outpatient (BNV) | payer BC, SELFPAY | PROVIDERS: PCP Physician Assistant; Visit Provider Internal Medicine | DX: Z12.31 Encounter for screening mammogram for malignant neoplasm of breast (principal) | CPT/HCPCS: 77063; 77067 ==

== ENCOUNTER 2024-11-27 15:39 | Outpatient (AMB) | payer BC, SELFPAY ==
--- NOTE | 2024-11-27 15:47 | MHC.PC.OV ---
Vital Signs 11/27/24 15:48 Height 5 ft 3 in Weight 82.242 kg BMI 32.1 BP 108/70 Respiration 14 Pulse 90 Pulse Source Pulse Oximeter Temp 97.3 F Temp Source Temporal Artery Scan Pulse Oximetry (%) 95 Oxygen Delivery Method Room Air Intake Visit Reasons: Onset Type 2 Diab Director Digital Advertising Required: No Accompanied by: Self / Same As Patient Allergies No Known Allergies Allergy (Verified 11/27/24 15:47) Medication List - Last Reconciled 11/27/24 by ESAU Bowman blood sugar diagnostic (OneTouch Ultra Test strips) Use to check fasting glucose daily blood-glucose meter (i-Human PatientsTouch Ultra2 Meter) As directed lancets (i-Human PatientsTouch UltraSoft 2 Lancet) Use to check fasting glucose daily lancets (OneTouch Delica Plus Lancet) As directed metformin ER 500 mg PO BID HPI HPI Comments History of Present Illness Details 59-year-old female with history of varicose veins of the bilateral lower extremities, sponge kidneys, and type 2 diabetes presents to the office today for follow-up. Type 2 diabetes-checking fasting glucose, typically around 140. Overall compliant with diabetic diet, has followed with diabetes education. She does require referral to Ophthalmology as well as Podiatry for evaluation of neuropathy and callus Obesity-BMI 32. Has lost about 10 lb since last visit. ROS: General: No fevers, malaise, unintentional weight loss HEENT: No blurred vision, diplopia. No sore throat, nasal congestion, rhinorrhea, sinus pain, ear pain Cardiovascular: No chest pain, palpitations, or leg edema Respiratory: No shortness of breath, wheezing, cough GI: No abdominal pain, nausea, vomiting, diarrhea, constipation, melena, hematochezia : No dysuria, hematuria, increased urinary frequency, decreased urinary output MSK: No myalgia, back pain Neuro: No headaches, weakness, paresthesias. see hpi Skin: No rashes or lesions EXAM: Constitutional - Awake and Alert, No apparent distress Eyes - PERRL Cardiovascular - S1S2, RRR, No edema Respiratory - Normal lung expansion, Normal respiratory effort, No respiratory distress, CTA bilaterally Extremities - no calf tenderness bilaterally, no swelling Skin - Warm/Dry Neurological - Alert & oriented x3 Psychological - Appropriate affect [facility] Medical History (Updated 11/27/24 @ 16:09 by ESAU Bowman) Diabetic neuropathy Type 2 diabetes mellitus Obesity History of kidney stones Surgical History (Updated 11/24/24 @ 16:13 by Heena Greenfield) Hx of colonoscopy (~11/06/21) H/O tubal ligation Hx of knee surgery Family History Mother Diabetes HTN (hypertension) Brother Kidney disease Social History Household Members: Spouse Housing: Apartment Alcohol intake: current Alcohol intake frequency: holidays/special occasions only Patient Tobacco Use Status: Current everyday Tobacco user Cigarettes Per Day: 5 Years Smoked: 13 Current occupational status: employed 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 Vick Ruiz, Marialuisa Cruz, George Servin and colleagues, with an educational catalina from [employer]. Physical exam (Primary Care) Vital Signs: Last Vital Signs Temp 97.3 F 11/27/24 15:48 Pulse 90 11/27/24 15:48 Resp 14 11/27/24 15:48 BP 108/70 11/27/24 15:48 Pulse Ox 95 11/27/24 15:48 Oxygen Delivery Method Room Air 11/27/24 15:48 BMI result Body Mass Index 32.1 Tobacco/Smoking Status: Tobacco use Status Patient Tobacco Use Status Current everyday Tobacco 11/27/24 15:53 Thrive Assessment: Date of Thrive Assessment Date Thrive assessed 09/01/24 11/27/24 15:53 Coding Level of Care Code Est Pt Level 4 (96184) Diagnoses Type 2 diabetes mellitus E11.9 Obesity E66.9 Diabetic neuropathy E11.40 Assessment & Plan Assessment & Plan (1) Type 2 diabetes mellitus: Code(s): E11.9 - Type 2 diabetes mellitus without complications Category: Medical Plan: Hemoglobin A1c pending. Continue metformin 500 mg twice daily. Compliance with diabetic diet. Referred to Podiatry and Ophthalmology (2) Obesity: Code(s): E66.9 - Obesity, unspecified Category: Medical Plan: Continue with weight loss efforts. Commended on weight loss thus far. Recommend healthy diet as well as regular moderate intensity exercise (3) Diabetic neuropathy: Code(s): E11.40 - Type 2 diabetes mellitus with diabetic neuropathy, unspecified Category: Medical Plan: Refer to podiatry. Not interested in medication at this time. We will monitor Plan Follow-up in the office in 3 months with labs completed prior to visit Orders: Orders Liver Panel 3 Months E11.9 - Type 2 diabetes mellitus without complications Basic Metabolic Panel 3 Months E11.9 - Type 2 diabetes mellitus without complications Hemoglobin A1c 3 Months E11.9 - Type 2 diabetes mellitus without complications Lipid Panel 3 Months E11.9 - Type 2 diabetes mellitus without complications Referrals Podiatry Referral E11.40 - Type 2 diabetes mellitus with diabetic neuropathy, unspecified, E11.9 - Type 2 diabetes mellitus without complications, L84 - Corns and callosities Ophthalmology Referral E11.9 - Type 2 diabetes mellitus without complications, Z01.00 - Encounter for examination of eyes and vision without abnormal findings Medications: New blood-glucose meter (Accu-Chek Guide Me Glucose Meter) As directed. Check fasting glucose daily 1 ea 0RF blood sugar diagnostic (Accu-Chek Guide test strips) As directed. Check fasting glucose daily 100 ea 1RF lancets (Accu-Chek Safe-T-Pro Plus) As directed. Check fasting glucose daily 200 ea 0RF
[2024-11-27 15:48] VITALS: BP 108/70; PULSE 90; RESP 14; TEMP 36.3; O2SAT 95; BMI 32.1
== END 2024-11-27 16:18 | disposition home or self-care (01) ==
LOC: HO.HMCHD 15:40
PROVIDERS: PCP Physician Assistant; Visit Provider Physician Assistant
DX: E11.40 Type 2 diabetes mellitus with diabetic neuropathy, unspecified (principal); E66.9 Obesity, unspecified

== ENCOUNTER 2024-11-27 15:39 | Outpatient (REF) | payer BC, SELFPAY ==
[2024-11-27 18:30] LABS: Microalbum/Creatinine Ratio Ur 6.8 ug/mg cr (<30)
== END 2024-11-27 15:40 | disposition home or self-care (01) ==
LOC: HO.LAB 15:39
PROVIDERS: PCP Physician Assistant; Visit Provider Physician Assistant
DX: E11.9 Type 2 diabetes mellitus without complications (principal); E11.40 Type 2 diabetes mellitus with diabetic neuropathy, unspecified; E66.9 Obesity, unspecified; Z68.32 Body mass index [BMI] 32.0-32.9, adult
CPT/HCPCS: 36415; 82043; 82570; 83036

== ENCOUNTER 2024-12-19 12:12 | Outpatient (AMB) | payer BC, SELFPAY ==
--- NOTE | 2024-12-19 12:52 | A.OFFVIS_ITS ---
Intake Intake Visit Reasons: 60 min Machine Marker Required: No Accompanied by: Self / Same As Patient Allergies No Known Allergies Allergy (Verified 11/27/24 15:47) HPI Comprehensive Diabetes Asmnt Most Recent Diabetes Results: 2 Microalb/Creat Ratio, (<30) 6.8 ug/mg cr 11/27/24 Cholesterol, (<200) 170 mg/dL 09/02/24 HDL Cholesterol, (>40) 46 mg/dL 09/02/24 Triglycerides, (<150) 161 mg/dL H 09/02/24 Creatinine, (0.5-1.4) 0.87 mg/dL 09/02/24 BUN, (9-16) 12 mg/dL 09/02/24 Sodium, (135-145) 139 mmol/L 09/02/24 Potassium, (3.3-5.1) 4.8 mmol/L 09/02/24 Chloride, (96-108) 104 mmol/L 09/02/24 Carbon Dioxide, (22-29) 29 mmol/L 09/02/24 Calcium, (8.4-10.2) 10.0 mg/dL 09/02/24 AST, (5-31) 28 U/L 09/02/24 ALT, (0-31) 35 U/L H 09/02/24 Total Protein, (6.5-8.0) 7.1 g/dL 09/02/24 Albumin, (3.5-5.0) 4.2 g/dL 09/02/24 [facility] Medical History (Updated 11/27/24 @ 16:09 by ESAU Bowman) Diabetic neuropathy Type 2 diabetes mellitus Obesity History of kidney stones Surgical History (Updated 11/24/24 @ 16:13 by Heena Greenfield) Hx of colonoscopy (~11/06/21) H/O tubal ligation Hx of knee surgery Family History Mother Diabetes HTN (hypertension) Brother Kidney disease Social History Household Members: Spouse Housing: Apartment Alcohol intake: current Alcohol intake frequency: holidays/special occasions only Patient Tobacco Use Status: Current everyday Tobacco user Cigarettes Per Day: 5 Years Smoked: 13 Current occupational status: employed 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 the patient met all learning objectives and was able to verbalize understanding and provide teach back of education topics discussed . The patient was provided with the opportunity to ask questions and all questions were answered. 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 ?Retinopathy: Eye complications ?Retinopathy? is the commonest long-term complication of diabetes. It is leading cause of blindness Besides, Retinopathy- People with diabetes? are also prone to cataract and Glaucoma. ?Neuropathy: Nerve damage -It involves temporary or permanent damage to nerve tissue. Nerve tissue gets injured mainly due to decreased blood flow and rise in blood glucose levels. This damage can lead to pain , or loss of sensation it can also include sexual dysfunction in both men and women ? Infections poor healing: People with diabetes? have increased susceptibility to various infections, such as? pneumonias, pyelonephritis, carbuncles and diabetic ulcers. This may be due to poor blood supply, reduced cellular immunity or hyperglycemia. ?Heart Disease And Stroke: People with diabetes are four times more prone to develop Heart disease than those who do not have diabetes ?Depression: Feeling down once in awhile is normal, but some people feel sadness that just won't go away. Life for them seems hopeless. Feeling this way most of the day for two weeks or more is a sign of serious depression ?Gum Disease: People get gum disease when plaque destroys the gums and bone around the teeth. People with diabetes can get gum disease from having high blood glucose levels for a long time Lifestyle * Work * Travel * Stress management * Problem solving Know your goals * A1C * Blood sugar targets * Blood pressure * Cholesterol/LDL Urine microalbumin Educational Materials: The patient was provided with the following written educational materials: ADCES 7 Healthy Behaviors Reducing Risks handout Patient Response to instructions: Comprehension of Instructions: Good Readiness to make changes: action How confident they feel about making changes: positive Portions of this note were created using voice recognition software, please excuse any words or phrases that may have been misinterpreted. Patient Instructions: Include regular daily activity. ADA recommends 30 minutes of exercise 5 days a week. Weight loss talk to PCP or Hourly Sales Staff before starting new plan. Test blood sugar as directed; Fasting and 2hpp largest meal. Watch trends in results. Utilize results and to assess how food, physical activity and medications affect blood sugar results. Bring glucometer or CGM to next visit. Be knowledgeable about diabetes medication, its action, side effects, efficacy, toxicity, prescribed dosage, appropriate timing and frequency of administration, effect of missed and delayed doses and instructions for storage, travel and safety. Problem solving techniques to monitor hypo/hyperglycemia episodes and treatments. Reduce risk reduction behaviors, smoking cessation, regular eye, foot and dental examinations. Coding Level of Care Code Est Pt Level 1 (32835) Diagnoses Type 2 diabetes mellitus E11.9
--- OUTSIDE RECORDS SUMMARY | 2024-12-19 14:56 | XMS_ITS | Patient Health Record ---
Author Organization [facility] Address [address] [place] [address] Care Team Providers Care Lead Software Architect Name Role Phone Rebecca (RETIRED) Yaw MEDINA Primary Care Provide r Unavailable Vick Metz Unavailable [phone] Reason For Referral No Information Problems Problem Type SNOMED Code ICD Code Onset Dates Problem Status W/U Status Risk Notes Problem Screening for malignant neoplasm of colon (980592180) Encounter for screening for malignant neoplasm of colon (Z12.11) Active confirmed Problem Screening for malignant neoplasm of rectum (504700850) Encounter for screening for malignant neoplasm of rectum (Z12.12) Active confirmed Problem Preprocedural examination ([id number]) Preprocedural examination (Z01.818) Active confirmed Plan Of Treatment Pending Test Test Name Order Date GI BIOPSY 08/22/2015 Future Test Test Name Order Date COLONOSCOPY 06/19/2015 Insurance Providers Payer Name Payer Address Payer Phone Subscriber Number Group Number Insured Name Patient Relationship to Insured Coverage Start Date Coverage End Date [facility] [address] [place] [phone] [id number] EMILY ROBERT Self - patient is the insured Medical (General) History Medical History History ICD Code kidney stones Denies [place],DM,CVA,Lung disease,renal dise ase Surgical History Surgery Date(Month/Year) Knee surgery x2 Kidney stone removal by cystoscopy BTL
== END 2024-12-19 13:08 | disposition home or self-care (01) ==
LOC: HO.ENCR 12:13
PROVIDERS: PCP Physician Assistant; Visit Provider Registered Nurse Diabetes Educator
DX: E11.9 Type 2 diabetes mellitus without complications (principal)
CPT/HCPCS: 99499

== ENCOUNTER 2024-12-21 08:47 | Outpatient (AMB) | payer BC, SELFPAY ==
[2024-12-21 08:58] VITALS: BMI 32.1
--- NOTE | 2024-12-21 08:58 | MHC.OFFVIS ---
Vital Signs 12/21/24 08:58 Height 5 ft 3 in Weight 181 lb BMI 32.1 Intake Visit Reasons: Type II diabetes, corns Intake Note: Isabel is a 59 year old female who presents today as a new patient for a bilateral diabetic foot exam and callouses of the feet. Pt reports her glucose is 156 as of last night and her last known A1c was 7.5 as of 11/27/24. She states she experiences occasional numbness and tingling in her feet with out burning. Patient has no history of back pain or injuries and she is currently not taking gabapentin. She reports having a history of stitches to the back of her left ankle and the callous located on the left ball of the foot is painful. Allergies No Known Allergies Allergy (Verified 12/21/24 08:59) Medication List - Last Reconciled 12/21/24 by Rocío Dewey DPM ammonium lactate 12% 1 appl topical DAILY blood sugar diagnostic (OneTouch Ultra Test strips) Use to check fasting glucose daily blood sugar diagnostic (Accu-Chek Guide test strips) As directed. Check fasting glucose daily blood-glucose meter (Accu-Chek Guide Me Glucose Meter) As directed. Check fasting glucose daily blood-glucose meter (OneTouch Ultra2 Meter) As directed lancets (OneTouch UltraSoft 2 Lancet) Use to check fasting glucose daily lancets (OneTouch Delica Plus Lancet) As directed lancets (Accu-Chek Softclix Lancets) As directed metformin ER 500 mg PO BID HPI Comments Details: The patient is a 59-year-old female with a past medical history as seen below presenting for diabetic foot exam. The patient has a history of Diabetes Mellitus, initially diagnosed in August with an A1c of 9.1%. Recent dietary adjustments and medication have reduced her A1c to 7%, indicating improved glycemic control. She reports experiencing tingling in her feet, a symptom associated with diabetic neuropathy, although numbness is not significant. The patient has not taken gabapentin for neuropathy but is currently on metformin, which she takes twice daily. The patient experiences significant pain from a callus noted to the plantar aspect of the left foot in the submet 1 area, which feels like stepping on a sharp object. She has attempted to manage the calluses by shaving them down, but they recur, causing persistent discomfort. The patient denies any recent injuries to her feet and reports no allergies to food or medication. She wears supportive shoes with arch support and avoids walking barefoot to prevent foot pain. She denies any other pedal concerns. [facility] Medical History (Updated 12/21/24 @ 09:30 by Rocío Dewey DPM) Pain in left foot Intractable plantar keratosis Other specified epidermal thickening Diabetic neuropathy Type 2 diabetes mellitus Obesity History of kidney stones Surgical History (Updated 11/24/24 @ 16:13 by Heena Greenfield) Hx of colonoscopy (~11/06/21) H/O tubal ligation Hx of knee surgery Family History Mother Diabetes HTN (hypertension) Brother Kidney disease Social History Household Members: Spouse Housing: Apartment Alcohol intake: current Alcohol intake frequency: holidays/special occasions only Patient Tobacco Use Status: Current everyday Tobacco user Cigarettes Per Day: 5 Years Smoked: 13 Current occupational status: employed 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 - Musculoskeletal: Reports pain from calluses on feet, particularly on the left foot. - General: Denies recent injuries to feet. - Allergies: Denies any allergies to food or medication. All systems reviewed & are unremarkable except as noted in HPI and below Physical Exam Vital Signs: BMI result Body Mass Index 32.1 Extrem Other: B/L LE Focused Physical Exam: Derm: Mild Mottling of skin noted. Increased thickening of skin noted to the plantar aspects of the feet bilaterally with a hyperkeratotic lesion with a core noted to the plantar aspect of the left foot in the submet 1 area. No open lesions, abrasions, or wounds noted. Toenails noted to be within normal length. No clinical signs of infection. Skin supple and turgor within normal limits. Vascular: DP/PT pulses palpable. Capillary refill time less than 3 seconds. Varicosities noted. Minimal edema noted bilaterally. Pedal hair absent. Neuro: Protective sensation is grossly intact to light touch. Protective sensations grossly diminished to monofilament testing. MSK: Pain on palpation to the hyperkeratotic lesion noted to the plantar aspect of the left foot in the submet 1 area. No fluctuance or crepitus noted. Pes planus foot type noted. Nonantalgic unassisted gait noted. Range of motion of the forefoot hindfoot and ankles within limits. Office Procedures AMB Debridement/Avulsion Podia Details: Debrided the hyperkeratotic lesion noted to the plantar aspect of the left foot in the submet 1 area using a 15. Blade with no incidents. [id number] of Callus (1) Procedure code (CPT) selection complete Diabetic Foot Exam G9226 - Diabetic Foot Exam Results Reviewed Results Reviewed: Laboratory Tests 11/27/24 16:35 Estimat Average Glucose 169 Hemoglobin A1c % 7.5 H Assessment & Plan Assessment & Plan (1) Varicose veins of right lower extremity with inflammation: Comment: 12/24/2023 - right great saphenous vein radiofrequency ablation 03/10/2024 - right leg microphlebectomy Code(s): I83.11 - Varicose veins of right lower extremity with inflammation Category: Medical (2) Varicose veins of left lower extremity with inflammation: Comment: 11/21/2021 - left great saphenous vein radiofrequency ablation Code(s): I83.12 - Varicose veins of left lower extremity with inflammation Category: Medical (3) Paresthesia of lower extremity: Code(s): R20.2 - Paresthesia of skin Category: Medical (4) Type 2 diabetes mellitus: Code(s): E11.9 - Type 2 diabetes mellitus without complications Category: Medical Qualifiers: Diabetes mellitus complication status: with other specified complication (5) Diabetic neuropathy: Code(s): E11.40 - Type 2 diabetes mellitus with diabetic neuropathy, unspecified Category: Medical Qualifiers: Diabetes mellitus type: type 2 Diabetes mellitus complication detail: diabetic polyneuropathy Qualified Code(s): E11.42 - Type 2 diabetes mellitus with diabetic polyneuropathy (6) Other specified epidermal thickening: Code(s): L85.8 - Other specified epidermal thickening Category: Medical (7) Intractable plantar keratosis: Code(s): L84 - Corns and callosities Category: Medical (8) Pain in left foot: Code(s): M79.672 - Pain in left foot Category: Medical Plan Patient was informed and verbally consented to the use of an ambient scribe for clinic note documentation during this visit. I discussed with the patient the importance of managing her diabetes to prevent complications such as neuropathy, vision changes, and adverse effects to organs. We reviewed the use of ammonium lactate cream to manage calluses and the need for regular podiatry visits to monitor foot health. I emphasized the importance of wearing supportive footwear and avoiding walking barefoot to prevent injuries. We agreed on a follow-up schedule and discussed the option of returning sooner if her symptoms worsen. - Prescribed ammonium lactate cream to manage callus formation and soften skin. - Continue current diabetes management with metformin and dietary adjustments to maintain glycemic control as per PCP. - Educate patient on proper foot care, including wearing supportive shoes and avoiding walking barefoot. RTC in 6 months for routine diabetic foot care. Advised patient to call the office or go to the ED if any worsenings symptoms occur. Orders: Orders AMB Debridement/Avulsion Podiatry Today E11.40 - Type 2 diabetes mellitus with diabetic neuropathy, unspecified, E11.9 - Type 2 diabetes mellitus without complications, I83.11 - Varicose veins of right lower extremity with inflammation, I83.12 - Varicose veins of left lower extremity with inflammation, L84 - Corns and callosities, L85.8 - Other specified epidermal thickening, M79.672 - Pain in left foot, R20.2 - Paresthesia of skin AMB Diabetic Foot Exam Today E11.40 - Type 2 diabetes mellitus with diabetic neuropathy, unspecified, E11.9 - Type 2 diabetes mellitus without complications, I83.11 - Varicose veins of right lower extremity with inflammation, I83.12 - Varicose veins of left lower extremity with inflammation, L84 - Corns and callosities, L85.8 - Other specified epidermal thickening, M79.672 - Pain in left foot, R20.2 - Paresthesia of skin Medications: New ammonium lactate 12% 1 appl topical DAILY 385 grams 1RF Corns and Calluses L84 - Corns and callosities, L85.8 - Other specified epidermal thickening, M79.672 - Pain in left foot, R20.2 - Paresthesia of skin Coding Level of Care Code New Pt Level 4 (44875) Diagnoses Varicose veins of right lower extremity with inflammation I83.11 Varicose veins of left lower extremity with inflammation I83.12 Paresthesia of lower extremity R20.2 Type 2 diabetes mellitus E11.9 Diabetes mellitus complication status: with other specified complication Diabetic polyneuropathy associated with type 2 diabetes mellitus E11.42 Diabetes mellitus type: type 2 Diabetes mellitus complication detail: diabetic polyneuropathy Other specified epidermal thickening L85.8 Intractable plantar keratosis L84 Pain in left foot M79.672 CPT Codes Skin Debridement - CPT: 30465-[place] of Callus (1) ([id number]) Diabetic Foot Exam - CPT: G9226 - Diabetic Foot Exam ([id number]) Time Spent (min) 58
--- OUTSIDE RECORDS SUMMARY | 2024-12-21 09:39 | XMS_ITS | Patient Health Record ---
Author Organization [facility] Address [address] [place] [address] Care Team Providers Care Livestock Buyer Name Role Phone Rebecca (RETIRED) Yaw MEDINA Primary Care Provide r Unavailable Vick Metz Unavailable [phone] Reason For Referral No Information Problems Problem Type SNOMED Code ICD Code Onset Dates Problem Status W/U Status Risk Notes Problem Screening for malignant neoplasm of colon (511386256) Encounter for screening for malignant neoplasm of colon (Z12.11) Active confirmed Problem Screening for malignant neoplasm of rectum (126046650) Encounter for screening for malignant neoplasm of rectum (Z12.12) Active confirmed Problem Preprocedural examination (200095345019011) Preprocedural examination (Z01.818) Active confirmed Plan Of Treatment Pending Test Test Name Order Date GI BIOPSY 08/22/2015 Future Test Test Name Order Date COLONOSCOPY 06/19/2015 Insurance Providers Payer Name Payer Address Payer Phone Subscriber Number Group Number Insured Name Patient Relationship to Insured Coverage Start Date Coverage End Date [facility] [address] [place] [address] [phone] [id number] EMILY ROBERT Self - patient is the insured Medical (General) History Medical History History ICD Code kidney stones Denies [place],DM,CVA,Lung disease,renal dise ase Surgical History Surgery Date(Month/Year) Knee surgery x2 Kidney stone removal by cystoscopy BTL
== END 2024-12-21 09:17 | disposition home or self-care (01) ==
LOC: HO.HPODS 08:47
PROVIDERS: PCP Physician Assistant; Visit Provider Student in an Organized Health Care Education/Training Program
DX: E11.42 Type 2 diabetes mellitus with diabetic polyneuropathy (principal); R20.2 Paresthesia of skin; I83.12 Varicose veins of left lower extremity with inflammation; L85.8 Other specified epidermal thickening; I83.11 Varicose veins of right lower extremity with inflammation; L84 Corns and callosities; M79.672 Pain in left foot
CPT/HCPCS: 11055; 99204; G9226

== ENCOUNTER → 2024-12-21 08:47 | Outpatient (BNVA) | payer BC, SELFPAY | PROVIDERS: PCP Physician Assistant; Visit Provider Student in an Organized Health Care Education/Training Program | DX: E11.42 Type 2 diabetes mellitus with diabetic polyneuropathy (principal); E11.40 Type 2 diabetes mellitus with diabetic neuropathy, unspecified; I83.11 Varicose veins of right lower extremity with inflammation; I83.12 Varicose veins of left lower extremity with inflammation; R20.2 Paresthesia of skin; L85.8 Other specified epidermal thickening; L84 Corns and callosities; M79.672 Pain in left foot | CPT/HCPCS: G9226; 11055 ==

== ENCOUNTER 2025-02-20 13:06 | Outpatient (AMB) | payer BC, SELFPAY ==
--- NOTE | 2025-02-20 13:01 | A.OFFPC_ITS ---
Intake Visit Reasons: 3 Month F/U Allergies No Known Allergies Allergy (Verified 12/21/24 08:59) Medication List - Last Reconciled 02/20/25 by Manny Carlos MD ammonium lactate 12% 1 appl topical DAILY blood sugar diagnostic (OneTouch Ultra Test strips) Use to check fasting glucose daily blood sugar diagnostic (Accu-Chek Guide test strips) As directed. Check fasting glucose daily blood-glucose meter (Accu-Chek Guide Me Glucose Meter) As directed. Check fasting glucose daily blood-glucose meter (OneTouch Ultra2 Meter) As directed lancets (OneTouch UltraSoft 2 Lancet) Use to check fasting glucose daily lancets (OneTouch Delica Plus Lancet) As directed lancets (Accu-Chek Softclix Lancets) As directed metformin ER 500 mg PO BID HPI HPI Comments History of Present Illness Details History of Present Illness The patient is a 59 year old female presenting for follow-up for type 2 diabetes mellitus and new onset pain and locking of the right middle finger. The patient reports that her last HbA1c in November was 7.5%, an improvement from 9.1% in August. 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 Her blood glucose levels typically range from 90 to 181 mg/dL. She is managing her condition with metformin 500 mg twice daily. Separately, the patient reports new onset symptoms in her right hand, where her middle finger hurts and gets stuck or locked when she bends her hand. She has to manually pull the finger to straighten it. The patient also reports feeling easily fatigued, which she attributes to her work. Medical History: - Type 2 Diabetes Mellitus - Acquired trigger finger Medications: - Metformin 500 mg twice daily for type 2 diabetes mellitus. Social History: - Employment: The patient is currently w orking. Results - Labs: - HbA1c was 7.5% in November, improved from 9.1% in August. [facility] Medical History (Updated 02/20/25 @ 13:24 by Manny Carlos MD) Trigger finger (acquired) Pain in left foot Intractable plantar keratosis Other specified epidermal thickening Diabetic neuropathy Type 2 diabetes mellitus Obesity History of kidney stones Surgical History (Updated 11/24/24 @ 16:13 by Heena Greenfield) Hx of colonoscopy (~11/06/21) H/O tubal ligation Hx of knee surgery Family History Mother Diabetes HTN (hypertension) Brother Kidney disease Social History Household Members: Spouse Housing: Apartment Alcohol intake: current Alcohol intake frequency: holidays/special occasions only Patient Tobacco Use Status: Current everyday Tobacco user Cigarettes Per Day: 5 Years Smoked: 13 Current occupational status: employed 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 Vick Ruiz, Marialuisa Cruz, George Servin and colleagues, with an educational catalina from [employer]. Review of Systems Narrative Review of Systems - General: Reports feeling easily fatigued. - Musculoskeletal: Reports pain, locking, and getting stuck in the right middle finger upon flexion. Physical exam (Primary Care) Tobacco/Smoking Status: Tobacco use Status Patient Tobacco Use Status Current everyday Tobacco 02/20/25 13:01 Thrive Assessment: Date of Thrive Assessment Date Thrive assessed 09/01/24 02/20/25 13:01 Telehealth Telehealth Telehealth Platform: [facility] Location of provider rendering services: practice address Location of patient: address on file Patient Identification confirmed using: Name, : Yes Telehealth method: voice only Patient verbally consented to treatment: Yes Patient verbally consented to billing insurance company: Yes Patient informed of any privacy concerns related to visit: Yes Minutes spent on Phone/Video with Pt.: 6 Coding Level of Care Code Tele Est Pt Level 3 (54296) Add On Problem Visit Only Diagnoses Type 2 diabetes mellitus with other specified complication, without long-term current use of insulin E11.69 Diabetes mellitus complication status: with other specified complication Diabetes mellitus fpc insulin use: without fpc use Trigger finger (acquired) M65.30 Assessment & Plan Assessment & Plan (1) Type 2 diabetes mellitus: Comment: - The patient's last HbA1c was 7.5% in November, showing significant improvement from 9.1% August. - She continues to take metformin 500 mg twice daily and monitors her blood glucose once a day, with readings ranging from 90 to 181 mg/dL. - A lab order will be placed to recheck HbA1c, complete blood count, liver function, and cholesterol. - Fasting is not required for the labs, but a repeat fasting lipid panel will be ordered if cholesterol is significantly elevated. - Refills for metformin will be sent to the pharmacy. 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 - The condition may be related to her work and diabetes. - Recommended initial management includes regular exercises, applying compresses, and massaging the hand and palm. - If symptoms worsen, a referral to a hand surgeon will be considered for a potential tendon release procedure. Code(s): M65.30 - Trigger finger, unspecified finger Category: Medical Plan I discussed the patient's diabetes management, noting the significant improvement in her HbA1c from 9.1% to 7.5%. I ordered labs including a new HbA1c, CBC, liver function, and cholesterol to continue monitoring her status and informed her that she could go at any time for the labs. I will send a refill for her metformin. I addressed her new complaint of a locking right middle finger, identifying it as trigger finger. I explained this could be related to her work and diabetes. I recommended conservative measures such as exercises and massage, and explained that if it worsens, a referral to a hand surgeon might be necessary for a minor procedure to release the tendon. We scheduled a follow-up appointment in three months for an in-person visit in the afternoon. Medications: Refilled metformin ER 500 mg PO BID 180 tabs 1RF Patient Instructions: - Continue taking Metformin 500 mg twice a day as prescribed. Refills have been sent to your pharmacy. - Please go to the lab to get your blood tests done. These will check your blood sugar (A1c), blood counts, liver, and cholesterol. You do not need to fast for these tests. - For your right middle finger, try doing regular exercises, massaging the area in your palm, and using compresses. - If the finger pain and locking get worse, we will refer you to a hand specialist. - Your next follow-up appointment is scheduled in three months. It will be an in-person visit at 3:30 PM.
--- OUTSIDE RECORDS SUMMARY | 2025-02-20 17:05 | XMS_ITS | Patient Health Record ---
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 x 1 year; no sig a lcohol Nonsmoker x 1 year; no sig a lcohol Problems Problem Type SNOMED Code ICD Code Onset Dates Problem Status W/U Status Risk Notes Problem Screening for malignant neoplasm of colon (922788489) Encounter for screening for malignant neoplasm of colon (Z12.11) Active confirmed Problem Screening for malignant neoplasm of rectum (249682469) Encounter for screening for malignant neoplasm of rectum (Z12.12) Active confirmed Problem Preprocedural examination (827352831953776) Preprocedural examination (Z01.818) Active confirmed Plan Of Treatment Pending Test Test Name Order Date GI BIOPSY 08/22/2015 Future Test Test Name Order Date COLONOSCOPY 06/19/2015 Insurance Providers Payer Name Payer Address Payer Phone Subscriber Number Group Number Insured Name Patient Relationship to Insured Coverage Start Date Coverage End Date [facility] [address] [place] [address] [id number] EMILY ROBERT Self - patient is the insured Medical (General) History Medical History History ICD Code kidney stones Denies [place],DM,CVA,Lung disease,renal dise ase Surgical History Surgery Date(Month/Year) Knee surgery x2 Kidney stone removal by cystoscopy BTL
== END 2025-02-20 13:07 | disposition home or self-care (01) ==
LOC: HO.HMCHD 13:06
PROVIDERS: PCP Physician Assistant; Visit Provider Student in an Organized Health Care Education/Training Program
DX: E11.69 Type 2 diabetes mellitus with other specified complication (principal); M65.30 Trigger finger, unspecified finger

== ENCOUNTER 2025-02-24 07:18 | Outpatient (REF) | payer BC, SELFPAY ==
--- OUTSIDE RECORDS SUMMARY | 2025-02-24 07:22 | XMS_ITS | Patient Health Record ---
Author Organization [facility] Address [address] [place] [address] Care Team Providers Care Roller Setter Name Role Phone Rebecca (RETIRED) Yaw MEDINA Primary Care Provide r Unavailable Vick Metz Unavailable [phone] Reason For Referral No Information Social History [...] Problem Screening for malignant neoplasm of colon (012899862) Encounter for screening for malignant neoplasm of colon (Z12.11) Active confirmed Problem Screening for malignant neoplasm of rectum (566192682) Encounter for screening for malignant neoplasm of rectum (Z12.12) Active confirmed Problem Preprocedural examination (888893761284961) Preprocedural examination (Z01.818) Active confirmed Plan Of Treatment Pending Test Test Name Order Date GI BIOPSY 08/22/2015 Future Test Test Name Order Date COLONOSCOPY 06/19/2015 Insurance Providers Payer Name Payer Address Payer Phone Subscriber Number Group Number Insured Name Patient Relationship to Insured Coverage Start Date Coverage End Date [facility] [address] [place] [address] [id number] EMILY ROBERT Self - patient is the insured Medical (General) History Medical History History ICD Code kidney stones Denies [place],DM,CVA,Lung disease,renal dise ase Surgical History Surgery Date(Month/Year) Knee surgery x2 Kidney stone removal by cystoscopy BTL
[2025-02-24 08:35] LABS: Alanine Aminotransferase 26 U/L (0-31); Albumin Level 4.6 g/dL (3.5-5.0); Alkaline Phosphatase 77 U/L (39-117); Anion Gap 14 (12-20); Aspartate Amino Transferase 20 U/L (5-31); Blood Urea Nitrogen 16 mg/dL (9-16); Calcium 10.5 mg/dL (8.4-10.2); Carbon Dioxide 26 mmol/L (22-29); Chloride 105 mmol/L (96-108); Cholesterol 168 mg/dL (<200); Estimated Glomerular Filt Rate > 60; HDL Cholesterol 55 mg/dL (>40); Potassium 4.6 mmol/L (3.3-5.1); Sodium 140 mmol/L (135-145); Total Protein 7.4 g/dL (6.5-8.0); Triglycerides 110 mg/dL (<150)
== END 2025-02-24 07:19 | disposition home or self-care (01) ==
LOC: HO.LAB 07:18
PROVIDERS: PCP Physician Assistant; Visit Provider Physician Assistant
DX: E11.9 Type 2 diabetes mellitus without complications (principal)
CPT/HCPCS: 36415; 80048; 80061; 80076; 83036